=== PATIENT | male | born 1950 | race Caucasian/White ===

== ENCOUNTER 2020-07-21 10:00 | Outpatient (REF) | payer MEDICARE, SELFPAY ==
[2020-07-21 14:11] LABS: MANUAL DIFF FLAG NO
[2020-07-21 14:24] LABS: Basophils Percent Auto 0.4 % (0-2); Eosinophils Absolute Auto 0.1 X10*3/uL (0.0-0.4); Eosinophils Percent Auto 1.1 % (0-4); Hematocrit 46.6 % (42-52); Hemoglobin 15.4 g/dl (14.0-18.0); Imm Gran Abs Auto 0.05 X10*3/uL (0.00-0.03); Imm Gran Pct Auto 0.5 % (0.0-0.4); Lymphocytes Absolute Auto 2.9 X10*3/uL (1.2-4.9); Lymphocytes Percent Auto 29.6 % (20-40); Mean Corpuscular Hemoglobin 29.7 pg (27.0-33.0); Mean Corpuscular Volume 89.8 fL (80-98); Mean Platelet Volume 9.9 fL (9.4-12.4); Monocytes Absolute Auto 0.9 X10*3/uL (0.1-1.2); Monocytes Percent Auto 8.9 % (2-11); Neutrophils Absolute Auto 5.8 X10*3/uL (2.0-8.3); Neutrophils Percent Auto 59.5 % (45-73); Platelet Count 190 X10*3/uL (160-400); Red Blood Count 5.19 X10*6/uL (4.60-5.80); Red Cell Distribution Width 12.7 % (11.0-16.0); White Blood Count 9.8 X10*3/uL (4.8-10.8)
[2020-07-21 14:41] LABS: Anion Gap 10 (12-20); Blood Urea Nitrogen 20 mg/dL (9-16); Carbon Dioxide 31 mmol/L (22-29); Chloride 102 mmol/L (96-108); Estimated Glomerular Filt Rate 49; Glucose Random 82 mg/dL (60-115); Potassium 4.2 mmol/l (3.3-5.1); Sodium 139 mmol/L (135-145)
[2020-07-21 15:00] LABS: Uric Acid 8.4 mg/dL (3.4-7.0)
== END 2020-07-21 10:01 | disposition home or self-care (01) ==
LOC: HO.WFDLDS 10:00
PROVIDERS: Visit Provider Family Medicine
DX: M10.9 Gout, unspecified (principal)
CPT/HCPCS: 36415; 80048; 84550; 85025

== ENCOUNTER 2020-12-22 08:02 | Outpatient (REF) | payer MEDICARE, SELFPAY ==
[2020-12-22 09:05] LABS: MANUAL DIFF FLAG NO
[2020-12-22 09:14] LABS: Basophils Percent Auto 0.6 % (0-2); Eosinophils Absolute Auto 0.1 X10*3/uL (0.0-0.4); Eosinophils Percent Auto 1.8 % (0-4); Hematocrit 48.1 % (42-52); Hemoglobin 15.9 g/dl (14.0-18.0); Imm Gran Abs Auto 0.02 X10*3/uL (0.00-0.03); Imm Gran Pct Auto 0.3 % (0.0-0.4); Lymphocytes Percent Auto 29.2 % (20-40); Mean Corpuscular HGB Conc 33.1 g/dl (31.0-36.0); Mean Corpuscular Hemoglobin 29.6 pg (27.0-33.0); Mean Corpuscular Volume 89.4 fL (80-98); Mean Platelet Volume 9.5 fL (9.4-12.4); Monocytes Absolute Auto 0.5 X10*3/uL (0.1-1.2); Monocytes Percent Auto 7.4 % (2-11); Neutrophils Absolute Auto 4.1 X10*3/uL (2.0-8.3); Neutrophils Percent Auto 60.7 % (45-73); Platelet Count 196 X10*3/uL (160-400); Red Blood Count 5.38 X10*6/uL (4.60-5.80); Red Cell Distribution Width 12.9 % (11.0-16.0); White Blood Count 6.8 X10*3/uL (4.8-10.8)
[2020-12-22 09:34] LABS: Alanine Aminotransferase 42 U/L (0-40); Albumin Level 4.4 g/dL (3.5-5.0); Alkaline Phosphatase 93 U/L (39-117); Anion Gap 14 (12-20); Aspartate Amino Transferase 27 U/L (5-37); Blood Urea Nitrogen 21 mg/dL (9-16); Carbon Dioxide 26 mmol/L (22-29); Chloride 105 mmol/L (96-108); Cholesterol 184 mg/dL; Estimated Glomerular Filt Rate 45; Glucose Random 96 mg/dL (60-115); HDL Cholesterol 39 mg/dL; LDL Cholesterol Calculated 110 mg/dl; Potassium 4.5 mmol/L (3.3-5.1); Sodium 140 mmol/L (135-145); Total Protein 7.6 g/dL (6.5-8.0); Triglycerides 176 mg/dL; Uric Acid 8.3 mg/dL (3.4-7.0)
[2020-12-22 09:56] LABS: Free T4 (Free Thyroxine) 0.79 ng/dL (0.71-1.85); Prostate Specific Antigen Scr 0.49 ng/mL (<0.05-4.0); Thyroid Stimulating Hormone 1.84 uIU/mL (0.32-4.0)
[2020-12-22 10:02] LABS: Folate 11.5 ng/mL (> or = 4.0); Vitamin B12 562 pg/mL (200-900)
== END 2020-12-22 08:03 | disposition home or self-care (01) ==
LOC: HO.LAB 08:02
PROVIDERS: PCP Internal Medicine; Visit Provider Internal Medicine
DX: E78.5 Hyperlipidemia, unspecified (principal); E78.00 Pure hypercholesterolemia, unspecified; M10.9 Gout, unspecified; R73.02 Impaired glucose tolerance (oral); N18.32 Chronic kidney disease, stage 3b; N40.0 Benign prostatic hyperplasia without lower urinary tract symptoms; Z12.5 Encounter for screening for malignant neoplasm of prostate
CPT/HCPCS: 36415; 80053; 80061; 82607; 82746; 84153; 84439; 84443; 84550; 85025

== ENCOUNTER 2021-06-22 08:35 | Outpatient (REF) | payer MEDICARE, SELFPAY ==
[2021-06-22 08:48] LABS: MANUAL DIFF FLAG NO
[2021-06-22 09:28] LABS: Basophils Percent Auto 0.3 % (0-2); Eosinophils Absolute Auto 0.1 X10*3/uL (0.0-0.4); Eosinophils Percent Auto 1.1 % (0-4); Hematocrit 49.2 % (42-52); Hemoglobin 16.6 g/dl (14.0-18.0); Imm Gran Abs Auto 0.03 X10*3/uL (0.00-0.03); Imm Gran Pct Auto 0.3 % (0.0-0.4); Lymphocytes Absolute Auto 2.5 X10*3/uL (1.2-4.9); Lymphocytes Percent Auto 27.6 % (20-40); Mean Corpuscular HGB Conc 33.7 g/dl (31.0-36.0); Mean Corpuscular Hemoglobin 29.6 pg (27.0-33.0); Mean Corpuscular Volume 87.7 fL (80-98); Mean Platelet Volume 9.4 fL (9.4-12.4); Monocytes Absolute Auto 0.6 X10*3/uL (0.1-1.2); Monocytes Percent Auto 6.7 % (2-11); Neutrophils Absolute Auto 5.7 X10*3/uL (2.0-8.3); Platelet Count 169 X10*3/uL (160-400); Red Blood Count 5.61 X10*6/uL (4.60-5.80); Red Cell Distribution Width 12.7 % (11.0-16.0); White Blood Count 8.9 X10*3/uL (4.8-10.8)
[2021-06-22 09:44] LABS: Urine Cytology See Pathology rpt
[2021-06-22 09:46] LABS: Estimated Average Glucose 111 mg/dL; Hemoglobin A1c % 5.5 %
[2021-06-22 09:59] LABS: Alanine Aminotransferase 31 U/L (0-40); Albumin Level 4.4 g/dL (3.5-5.0); Alkaline Phosphatase 106 U/L (39-117); Anion Gap 11 (12-20); Aspartate Amino Transferase 21 U/L (5-37); Bilirubin Total 0.7 mg/dL (0.0-1.0); Blood Urea Nitrogen 20 mg/dL (9-16); Calcium 9.3 mg/dL (8.4-10.2); Carbon Dioxide 28 mmol/L (22-29); Chloride 107 mmol/L (96-108); Cholesterol 159 mg/dL; Estimated Glomerular Filt Rate 51; Glucose Fasting 97 mg/dL (60-99); HDL Cholesterol 30 mg/dL; LDL Cholesterol Calculated 77 mg/dl; Potassium 4.3 mmol/L (3.3-5.1); Sodium 142 mmol/L (135-145); Total Protein 7.7 g/dL (6.5-8.0); Triglycerides 262 mg/dL; Uric Acid 7.3 mg/dL (3.4-7.0)
[2021-06-22 10:05] LABS: Appearance Urine CLEAR; Color Urine YELLOW; Glucose Urine UA NEG (NEG); Leukocyte Esterase Urine NEG (NEG); Nitrite Urine NEG (NEG); Specific Gravity - Urine 1.025 (1.005-1.025); UACC Culture Trigger NO; Urine Blood 1+ (NEG); Urine Ketones NEG (NEG); Urine Protein NEG (NEG-TRACE)
[2021-06-22 10:14] LABS: TSH reflex Free T4 2.04 uIU/mL (0.32-4.0); Vitamin D 25-OH Total 38.3 ng/mL (>30)
[2021-06-22 10:19] LABS: RBC Urine 0-2 /HPF (0); WBC Urine 0 /HPF (0-4)
== END 2021-06-22 08:36 | disposition home or self-care (01) ==
LOC: HO.LAB 08:35
PROVIDERS: PCP Internal Medicine; Visit Provider Internal Medicine
DX: R73.01 Impaired fasting glucose (principal); N18.32 Chronic kidney disease, stage 3b; R31.1 Benign essential microscopic hematuria; E78.2 Mixed hyperlipidemia; M1A.9XX0 Chronic gout, unspecified, without tophus (tophi); E66.3 Overweight; E55.9 Vitamin D deficiency, unspecified
CPT/HCPCS: 36415; 80053; 80061; 81001; 81003; 82306; 83036; 84443; 84550; 85025; 88112

== ENCOUNTER 2021-12-18 08:04 | Outpatient (REF) | payer MEDICARE, SELFPAY ==
[2021-12-18 08:41] LABS: Appearance Urine CLEAR; Color Urine YELLOW; Glucose Urine UA NEG (NEG); Leukocyte Esterase Urine NEG (NEG); Nitrite Urine NEG (NEG); PH 5.5 (5.0-8.0); Specific Gravity - Urine >= 1.030 (1.005-1.025); UACC Culture Trigger NO; Urine Blood 2+ (NEG); Urine Ketones NEG (NEG); Urine Protein NEG (NEG-TRACE)
[2021-12-18 08:53] LABS: Bacteria Urine TRACE /LPF; Mucus Urine 2+ /LPF; WBC Urine 0 /HPF (0-4)
== END 2021-12-18 08:05 | disposition home or self-care (01) ==
LOC: HO.LAB 08:04
PROVIDERS: PCP Internal Medicine; Visit Provider Internal Medicine
DX: R31.1 Benign essential microscopic hematuria (principal); N18.32 Chronic kidney disease, stage 3b
CPT/HCPCS: 81001

== ENCOUNTER 2021-12-22 09:30 | Outpatient (REF) | payer MEDICARE, SELFPAY ==
[2021-12-22 11:14] LABS: Alanine Aminotransferase 40 U/L (0-40); Albumin Level 4.4 g/dL (3.5-5.0); Alkaline Phosphatase 92 U/L (39-117); Anion Gap 14 (12-20); Aspartate Amino Transferase 26 U/L (5-37); Bilirubin Total 1.1 mg/dL (0.0-1.0); Blood Urea Nitrogen 28 mg/dL (9-16); Calcium 9.8 mg/dL (8.4-10.2); Carbon Dioxide 27 mmol/L (22-29); Chloride 105 mmol/L (96-108); Cholesterol 192 mg/dL; Estimated Glomerular Filt Rate 49; Glucose Fasting 89 mg/dL (60-99); HDL Cholesterol 35 mg/dL; LDL Cholesterol Calculated 128 mg/dl; Potassium 4.8 mmol/L (3.3-5.1); Sodium 141 mmol/L (135-145); Triglycerides 148 mg/dL; Uric Acid 8.7 mg/dL (3.4-7.0)
== END 2021-12-22 09:31 | disposition home or self-care (01) ==
LOC: HO.LAB 09:30
PROVIDERS: PCP Internal Medicine; Visit Provider Internal Medicine
DX: M10.9 Gout, unspecified (principal); E78.00 Pure hypercholesterolemia, unspecified
CPT/HCPCS: 36415; 80053; 80061; 84550

== ENCOUNTER 2022-06-15 07:04 | Outpatient (REF) | payer MEDICARE, SELFPAY ==
[2022-06-15 07:28] LABS: MANUAL DIFF FLAG NO
[2022-06-15 08:01] LABS: Urine Cytology See Pathology rpt
[2022-06-15 08:06] LABS: Basophils Absolute Auto 0.1 X10*3/uL (0.0-0.2); Basophils Percent Auto 0.7 % (0-2); Eosinophils Absolute Auto 0.2 X10*3/uL (0.0-0.4); Eosinophils Percent Auto 2.3 % (0-4); Hematocrit 49.1 % (42.0-52.0); Hemoglobin 16.4 g/dl (14.0-18.0); Imm Gran Abs Auto 0.02 X10*3/uL (0.00-0.03); Imm Gran Pct Auto 0.3 % (0.0-0.4); Lymphocytes Absolute Auto 2.5 X10*3/uL (1.2-4.9); Lymphocytes Percent Auto 34.1 % (20-40); Mean Corpuscular HGB Conc 33.4 g/dl (31.0-36.0); Mean Corpuscular Hemoglobin 29.5 pg (27.0-33.0); Mean Corpuscular Volume 88.5 fL (80.0-98.0); Mean Platelet Volume 9.7 fL (9.4-12.4); Monocytes Absolute Auto 0.6 X10*3/uL (0.1-1.2); Monocytes Percent Auto 7.4 % (2-11); Neutrophils Absolute Auto 4.1 x10*3/uL (2.0-8.3); Neutrophils Percent Auto 55.2 % (45-73); Platelet Count 169 X10*3/uL (160-400); Red Blood Count 5.55 X10*6/uL (4.60-5.80); Red Cell Distribution Width 13.2 % (11.0-16.0); White Blood Count 7.4 X10*3/uL (4.8-10.8)
[2022-06-15 08:37] LABS: Appearance Urine Clear; Color Urine Yellow; Glucose Urine UA Negative (Negative); Leukocyte Esterase Urine Negative (Negative); Nitrite Urine Negative (Negative); PH 5.5 (5.0-9.0); UMIC TRIGGER UACC YES; Urine Blood Small (1+) (Negative); Urine Ketones Negative (Negative); Urine Protein Negative (Neg-Trace)
[2022-06-15 08:48] LABS: Alanine Aminotransferase 32 U/L (0-40); Albumin Level 4.4 g/dL (3.5-5.0); Alkaline Phosphatase 99 U/L (39-117); Anion Gap 17 (12-20); Aspartate Amino Transferase 24 U/L (5-37); Bilirubin Total 0.6 mg/dL (0.0-1.0); Blood Urea Nitrogen 27 mg/dL (9-16); Calcium 9.2 mg/dL (8.4-10.2); Carbon Dioxide 23 mmol/L (22-29); Chloride 105 mmol/L (96-108); Cholesterol 183 mg/dL; Estimated Glomerular Filt Rate 41; Glucose Fasting 100 mg/dL (60-99); HDL Cholesterol 36 mg/dL; LDL Cholesterol Calculated 110 mg/dl; Potassium 4.7 mmol/L (3.3-5.1); Sodium 140 mmol/L (135-145); Total Protein 7.8 g/dL (6.5-8.0); Triglycerides 186 mg/dL
[2022-06-15 08:49] LABS: TSH reflex Free T4 2.25 uIU/mL (0.32-4.0); Vitamin D 25-OH Total 39.1 ng/mL (>30)
[2022-06-15 08:49] LABS: Bacteria Urine None Seen (None Seen); Hyaline Casts Urine 0-2 /LPF (0-2); RBC Urine 0-2 /HPF (0-2); Squamous Epithelial Cell Urine 0-2 /HPF (0-2); WBC Urine 0-5 /HPF (0-5)
== END 2022-06-15 07:05 | disposition home or self-care (01) ==
LOC: HO.LAB 07:04
PROVIDERS: PCP Internal Medicine; Visit Provider Internal Medicine
DX: R31.1 Benign essential microscopic hematuria (principal); E78.00 Pure hypercholesterolemia, unspecified; I10 Essential (primary) hypertension; E55.9 Vitamin D deficiency, unspecified; M10.9 Gout, unspecified
CPT/HCPCS: 36415; 80053; 80061; 81001; 82306; 84443; 84550; 85025; 88112

== ENCOUNTER 2022-06-30 10:20 | Outpatient (REF) | payer MEDICARE, SELFPAY ==
--- NOTE | ~2022-06-30 | US_ITS ---
EXAMINATION: US RETROPERITONEAL LIMITED (RENAL ONLY) CLINICAL INFORMATION: Cyst of kidney, acquired. COMPARISON: Renal ultrasound 02/02/2018 and 04/30/2015. TECHNIQUE: Real-time imaging of the kidneys. FINDINGS: RIGHT KIDNEY: 12.6 x 5.6 x 6.2 cm (SAG x AP x TRV). The kidney is normal in size, contour, and echogenicity. Renal cortical thickness is normal. There are multiple cysts. Largest measures 7.4 x 6.8 x 6.8 cm in the upper pole. This is increased in size from 5.3 x 5.9 cm on previous exam. No renal calculi or hydronephrosis. LEFT KIDNEY: 13.0 x 6.6 x 4.9 cm (SAG x AP x TRV). The kidney is normal in size, contour, and echogenicity. Renal cortical thickness is normal. There are multiple cysts. Largest measures 5.2 x 4.5 x 5 cm in the upper pole. This is minimally complex with single thin septation. This is increased from 4 x 3.5 cm previous exam. No renal calculi or hydronephrosis. US/US renal BI IMPRESSION: Multiple bilateral renal cysts.
== END 2022-06-30 10:21 | disposition home or self-care (01) ==
LOC: HO.US 10:20
PROVIDERS: Visit Provider Internal Medicine
DX: N18.32 Chronic kidney disease, stage 3b (principal); N28.1 Cyst of kidney, acquired; R31.1 Benign essential microscopic hematuria
CPT/HCPCS: 76775

== ENCOUNTER 2022-12-31 07:46 | Outpatient (REF) | payer MEDICARE, SELFPAY ==
[2022-12-31 08:03] LABS: MANUAL DIFF FLAG NO
[2022-12-31 08:27] LABS: Basophils Absolute Auto 0.1 X10*3/uL (0.0-0.2); Basophils Percent Auto 0.7 % (0-2); Eosinophils Absolute Auto 0.1 X10*3/uL (0.0-0.4); Hematocrit 49.4 % (42.0-52.0); Hemoglobin 16.5 g/dl (14.0-18.0); Imm Gran Abs Auto 0.02 X10*3/uL (0.00-0.03); Imm Gran Pct Auto 0.3 % (0.0-0.4); Lymphocytes Absolute Auto 2.4 X10*3/uL (1.2-4.9); Lymphocytes Percent Auto 35.1 % (20-40); Mean Corpuscular HGB Conc 33.4 g/dl (31.0-36.0); Mean Corpuscular Hemoglobin 29.9 pg (27.0-33.0); Mean Corpuscular Volume 89.5 fL (80.0-98.0); Mean Platelet Volume 9.4 fL (9.4-12.4); Monocytes Absolute Auto 0.5 X10*3/uL (0.1-1.2); Monocytes Percent Auto 7.9 % (2-11); Neutrophils Absolute Auto 3.7 x10*3/uL (2.0-8.3); Platelet Count 177 X10*3/uL (160-400); Red Blood Count 5.52 X10*6/uL (4.60-5.80); Red Cell Distribution Width 12.8 % (11.0-16.0); White Blood Count 6.7 X10*3/uL (4.8-10.8)
[2022-12-31 08:31] LABS: Appearance Urine Clear; Color Urine Yellow; Glucose Urine UA Negative (Negative); Leukocyte Esterase Urine Negative (Negative); Nitrite Urine Negative (Negative); Specific Gravity - Urine 1.025 (1.005-1.025); UMIC TRIGGER UACC YES; Urine Blood Moderate (2+) (Negative); Urine Ketones Negative (Negative); Urine Protein Negative (Neg-Trace)
[2022-12-31 08:36] LABS: Bacteria Urine None Seen (None Seen); Hyaline Casts Urine 0-2 /LPF (0-2); Squamous Epithelial Cell Urine 0-2 /HPF (0-2); WBC Urine 0-5 /HPF (0-5)
[2022-12-31 08:45] LABS: Estimated Average Glucose 108 mg/dL; Hemoglobin A1C 152.5356 umol/L; Hemoglobin A1c % 5.4 %
[2022-12-31 09:08] LABS: Alanine Aminotransferase 29 U/L (0-40); Albumin Level 4.4 g/dL (3.5-5.0); Alkaline Phosphatase 95 U/L (39-117); Anion Gap 15 (12-20); Aspartate Amino Transferase 24 U/L (5-37); Bilirubin Total 0.8 mg/dL (0.0-1.0); Blood Urea Nitrogen 23 mg/dL (9-16); Calcium 9.4 mg/dL (8.4-10.2); Carbon Dioxide 26 mmol/L (22-29); Chloride 105 mmol/L (96-108); Cholesterol 165 mg/dL; Estimated Glomerular Filt Rate 45; Glucose Fasting 95 mg/dL (60-99); HDL Cholesterol 35 mg/dL; LDL Cholesterol Calculated 91 mg/dl; Potassium 4.3 mmol/L (3.3-5.1); Sodium 142 mmol/L (135-145); Total Protein 7.4 g/dL (6.5-8.0); Triglycerides 197 mg/dL; Uric Acid 7.6 mg/dL (3.4-7.0)
[2022-12-31 09:24] LABS: TSH reflex Free T4 3.04 uIU/mL (0.32-4.0)
== END 2022-12-31 07:47 | disposition home or self-care (01) ==
LOC: HO.LAB 07:46
PROVIDERS: PCP Internal Medicine; Visit Provider Internal Medicine
DX: M10.9 Gout, unspecified (principal); I10 Essential (primary) hypertension; R73.01 Impaired fasting glucose; E55.9 Vitamin D deficiency, unspecified; E78.00 Pure hypercholesterolemia, unspecified
CPT/HCPCS: 36415; 80053; 80061; 81001; 82306; 83036; 84443; 84550; 85025

== ENCOUNTER 2023-07-04 07:21 | Outpatient (REF) | payer MEDICARE, OTHER, SELFPAY ==
[2023-07-04 07:42] LABS: MANUAL DIFF FLAG NO
[2023-07-04 07:47] LABS: Basophils Percent Auto 0.4 % (0-2); Eosinophils Absolute Auto 0.1 X10*3/uL (0.0-0.4); Hematocrit 49.4 % (42.0-52.0); Hemoglobin 16.9 g/dl (14.0-18.0); Imm Gran Abs Auto 0.06 X10*3/uL (0.00-0.03); Imm Gran Pct Auto 0.6 % (0.0-0.4); Lymphocytes Absolute Auto 2.7 X10*3/uL (1.2-4.9); Mean Corpuscular HGB Conc 34.2 g/dl (31.0-36.0); Mean Corpuscular Volume 87.6 fL (80.0-98.0); Mean Platelet Volume 9.4 fL (9.4-12.4); Monocytes Absolute Auto 0.6 X10*3/uL (0.1-1.2); Monocytes Percent Auto 6.2 % (2-11); Neutrophils Absolute Auto 6.8 x10*3/uL (2.0-8.3); Neutrophils Percent Auto 65.8 % (45-73); Platelet Count 156 X10*3/uL (160-400); Red Blood Count 5.64 X10*6/uL (4.60-5.80); Red Cell Distribution Width 12.6 % (11.0-16.0); White Blood Count 10.4 X10*3/uL (4.8-10.8)
[2023-07-04 08:37] LABS: Alanine Aminotransferase 29 U/L (0-40); Albumin Level 4.2 g/dL (3.5-5.0); Alkaline Phosphatase 104 U/L (39-117); Anion Gap 16 (12-20); Aspartate Amino Transferase 19 U/L (5-37); Bilirubin Total 0.5 mg/dL (0.0-1.0); Blood Urea Nitrogen 21 mg/dL (9-16); Calcium 9.2 mg/dL (8.4-10.2); Carbon Dioxide 22 mmol/L (22-29); Chloride 107 mmol/L (96-108); Cholesterol 159 mg/dL (<200); Estimated Glomerular Filt Rate 56; Glucose Fasting 103 mg/dL (60-99); HDL Cholesterol 34 mg/dL (>40); LDL Cholesterol Calculated 85 mg/dL (<100); Potassium 4.1 mmol/L (3.3-5.1); Sodium 141 mmol/L (135-145); Total Protein 7.8 g/dL (6.5-8.0); Triglycerides 201 mg/dL (<150); Uric Acid 7.9 mg/dL (3.4-7.0)
[2023-07-04 08:46] LABS: Appearance Urine Clear; Color Urine Yellow; Glucose Urine UA Negative (Negative); Leukocyte Esterase Urine Negative (Negative); Nitrite Urine Negative (Negative); UMIC TRIGGER UACC YES; Urine Blood Small (1+) (Negative); Urine Ketones Negative (Negative); Urine Protein Negative (Neg-Trace)
[2023-07-04 08:53] LABS: TSH reflex Free T4 2.11 uIU/mL (0.32-4.0); Vitamin D 25-OH Total 48.1 ng/mL (>30)
[2023-07-04 09:01] LABS: Bacteria Urine None Seen (None Seen); Creatinine Urine 138.69 mg/dL; Hyaline Casts Urine 0-2 /LPF (0-2); Squamous Epithelial Cell Urine 0-2 /HPF (0-2); WBC Urine 0-5 /HPF (0-5)
== END 2023-07-04 07:22 | disposition home or self-care (01) ==
LOC: HO.LAB 07:21
PROVIDERS: PCP Internal Medicine; Visit Provider Internal Medicine
DX: I12.9 Hypertensive chronic kidney disease with stage 1 through stage 4 chronic kidney disease, or unspecified chronic kidney disease (principal); N18.30 Chronic kidney disease, stage 3 unspecified; E78.00 Pure hypercholesterolemia, unspecified; M10.9 Gout, unspecified; E55.9 Vitamin D deficiency, unspecified
CPT/HCPCS: 36415; 80053; 80061; 81001; 82043; 82306; 82570; 84443; 84550; 85025

== ENCOUNTER 2023-07-05 09:29 | Outpatient (AMB) | payer MEDICARE, OTHER, SELFPAY ==
[2023-07-05 09:33] VITALS: BP 122/90; PULSE 89; O2SAT 96; BMI 29.6
--- NOTE | 2023-07-05 09:33 | A.OFFPC_ITS ---
Vital Signs 07/05/23 09:33 Height 5 ft 7 in Weight 189 lb BMI 29.6 BP 122/90 H Blood Pressure Location Lt brachial Position Sitting Pulse 89 Pulse Source Pulse Oximeter Pulse Oximetry (%) 96 Oxygen Delivery Method Room Air Intake Visit Reasons: hyperlipidemia, CKD, renal cysts It Operations Manager Required: No Accompanied by: Self / Same As Patient Allergies Bee sting Allergy (Unknown, Uncoded 07/05/23 09:43) anaphylaxis bee stings Allergy (Unknown, Uncoded 07/05/23 09:43) Anaphylaxis Penicillin Allergy (Unknown, Uncoded 07/05/23 09:43) rash penicillin Allergy (Unknown, Uncoded 07/05/23 09:43) Rash Medication List - Last Reconciled 07/05/23 by Hernandez Martinez MD atorvastatin 10 mg PO DAILY colchicine (gout) (Colcrys) 0.6 mg PO DAILY 30 days epinephrine (EpiPen) 0.3 mg (0.3 mL) IM Q10M PRN methocarbamol 750 mg PO Q8H PRN mometasone 0.1% 1 appl topical DAILY PRN omega-3 fatty acids (Fish Oil Concentrate) 1,000 mg PO DAILY Tobacco use date assessed: 07/05/23 Fall risk assessment: No Falls in past year Last assessed Fall Risk: 07/05/23 Dental Screening Dental Screen Date: 07/05/23 Did you have a dental visit in the last 12 months?: Yes Did you have a dental problem in the last 6 months where you did not have access to dental care?: No Was dental information given to patient?: Patient has dentist HPI hyperlipidemia, CKD, renal cysts HPI Details Patient comes in today for his follow up visit States that he feels okay He denies any headaches or dizziness Denies any chest pains, no SOB No nausea/vomiting, no abdominal pain No change in bowel habits noted Adds that he recently noticed a couple of small skin lesions/skin tags over the front of his lower throat area - states that the lesions do not hurt or itch but is wondering what they are and whether he needs to have them removed or not Had his follow up labs done yesterday - to discuss his results [facility] Medical History (Updated 07/05/23 @ 10:02 by Hernandez Martinez MD) Renal cysts, acquired, bilateral Benign microscopic hematuria Elevated blood pressure reading Impaired fasting glucose Primary osteoarthritis of both knees Mixed hyperlipidemia Normal colonoscopy CKD (chronic kidney disease) stage 3, GFR 30-59 ml/min BPH (benign prostatic hyperplasia) Overweight (BMI 25.0-29.9) Surgical History History of prostate surgery (~08/2018) Family History Father Parkinson's disease Mother Alzheimer's disease Social History Housing: House Alcohol intake: current Alcohol intake frequency: holidays/special occasions only Alcohol type: beer Patient Tobacco Use Status: Former Tobacco user e-Cigarette/Vaping Use: Never Used Second Hand Smoke Exposure: Yes service: No Current occupational status: retired Cognitive needs: No Hearing needs: Yes Vision needs: Yes Questionnaire PHQ-9 Over the last 2 weeks, how often have you been bothered by any of the following problems? 1. Little interest or pleasure in doing things: not at all 2. Feeling down, depressed, or hopeless: not at all 3. Trouble falling or staying asleep, or sleeping too much: not at all 4. Feeling tired or having little energy: not at all 5. Poor appetite or overeating: not at all 6. Feeling bad about yourself - or that you are a failure or have let yourself or your family down: not at all 7. Trouble concentrating on things, such as reading the newspaper or watching television: not at all 8. Moving or speaking so slowly that other people could have noticed. Or the opposite - being so fidgety or restless that you have been moving around a lot more than usual: not at all 9. Thoughts that you would be better off or of hurting yourself in some way: not at all Total score: 0 Depression Screening Interpretation: Negative Depression Screening Done: Yes [id number] - PHQ-9 Billing: Yes Source: Developed by Drs. Michael Page, Cherie Watson, Nick Ha and colleagues, with an educational jules from [email or web address]. Thrive Questionnaire Date Thrive assessed: 07/05/23 I am a: Patient What is your living situation today?: I have a steady place to live Within the past 12 months, did the food you bought not last and you didn't have the money to get more?: Never true Within the past 12 months, did you worry whether your food would run out before you got money to buy more?: Never true Do you have trouble paying for medicines?: No Do you have trouble getting transportation to medical appointments?: No Do you have trouble paying your heating and electricity bill?: No Do you have trouble taking care of your child, family member or friend?: No Do you have trouble with day-to-day activities such as bathing, preparing meals, shopping, managing finances, etc.?: No Are you currently unemployed and looking for a job?: No Are you interested in more education?: No Please select the resources that you would like help with: None Currently or been in a relationship where the following occur: no concerns reported AUDIT C Alcohol Use Questionnaire (AUDIT-C) 1. How often do you have a drink containing alcohol?: Monthly or less 2. How many drinks containing alcohol do you have on a typical day when you are drinking?: 1 or 2 3. How often do you have six or more drinks on one occasion?: Never Total Score: 1 Score Reviewed/Action Taken: Yes RACHEAL-7 AMB Questionnaire RACHEAL-7 Date RACHEAL - 7 assessed: 07/05/23 Feeling nervous, anxious, or on edge: 0 = Not at all Not being able to stop or control worryin = Not at all Worrying too much about different things: 0 = Not at all Trouble relaxin = Not at all Being so restless that it is hard to sit still: 0 = Not at all Becoming easily annoyed or irritable: 0 = Not at all Feeling afraid as if something awful might happen: 0 = Not at all Total RACHEAL-7 score (0-4 normal; 5-9 mild; 10-14 moderate; 15-21 severe): 0 Source: Developed by Drs. Michael Page, Cheire Watson, Nick Ha and colleagues, with an educational jules from [email or web address]. Review of Systems Const Denies chills, Denies fatigue, Denies fever(s) and Denies headache(s) ENT Denies dysphagia, Denies dizziness, Denies otalgia, Denies headache(s), Denies neck pain, Denies odynophagia and Denies sore throat Card Denies chest pain, Denies palpitations and Denies dyspnea Resp Denies cough and Denies dyspnea GI Denies abdominal pain, Denies constipation, Denies dysphagia, Denies heartburn, Denies diarrhea, Denies nausea, Denies odynophagia and Denies vomiting Denies dysuria, Denies nocturia and Denies urinary frequency Musc Reports back pain (on and off) and Denies neck pain Skin/Breast Details: (+) couple of small, raised skin lesions over the lower throat area anteriorly Denies rash Neuro Denies dizziness and Denies headache(s) Endo Denies fatigue and Denies palpitations Physical exam (Primary Care) Vital Signs: Last Vital Signs Pulse 89 07/05/23 09:33 BP 122/90 H 07/05/23 09:33 Pulse Ox 96 07/05/23 09:33 Oxygen Delivery Method Room Air 07/05/23 09:33 BMI result Body Mass Index 29.6 Tobacco/Smoking Status: Tobacco use Status Tobacco use date assessed 07/05/23 07/05/23 09:38 Patient Tobacco Use Status Former Tobacco user 07/05/23 09:38 e-Cigarette/Vaping Use Never Used 07/05/23 09:38 PHQ-9: PHQ-9 Score PHQ-9: Total score 0 07/05/23 09:38 Depression Screening Interpretation: Negative Thrive Assessment: Date of Thrive Assessment Date Thrive assessed 07/05/23 07/05/23 09:38 Currently or been in a relationship where the following occur: no concerns reported Const General: no acute distress and alert HENMT Ears: TM's normal bilaterally and EAC's normal Throat: Yes posterior oropharynx normal and Yes tonsils normal (no TP congestion) Neck Neck: Yes no lymphadenopathy and Yes supple Resp Auscultation: clear to auscultation bilaterally, no rales and no wheezes Cardio Rate: regular rate Rhythm: regular rhythm Heart sounds: no murmurs GI Palpation (GI): Soft to palpation and nontender Auscultation: normal bowel sounds Back/Spine/Pelvis Thoracic/Lumbar Spine: No lumbar spinal tenderness Skin Other: (+) couple of small, raised, pearly lesions over the lower anterior throat area just above the sternoclavicular notch Extrem General: Yes no clubbing, cyanosis or edema Results Reviewed Results Reviewed: Laboratory Tests 07/04/23 07/04/23 07/04/23 07:30 07:30 07:41 WBC 10.4 Hgb 16.9 Hct 49.4 Plt Count 156 L Sodium 141 Potassium 4.1 Creatinine 1.26 Estimated GFR 56 Fasting Glucose 103 H Uric Acid 7.9 H Calcium 9.2 AST 19 ALT 29 Triglycerides 201 H Cholesterol 159 LDL Cholesterol, Calc HDL Cholesterol 25-OH Vitamin D Total 48.1 TSH 2.11 Ur Specific [place] 1.020 Urine Protein Negative Urine Glucose (UA) Negative Urine Blood Small (1+) H Microalb/Creat Ratio 5.0 07/04/23 07/04/23 07:41 07:41 WBC Hgb Hct Plt Count Sodium Potassium Creatinine Estimated GFR Fasting Glucose Uric Acid Calcium AST ALT Triglycerides Cholesterol LDL Cholesterol, Calc 85 HDL Cholesterol 34 L 25-OH Vitamin D Total TSH Ur Specific [place] Urine Protein Urine Glucose (UA) Urine Blood Microalb/Creat Ratio Assessment and Plan Assessment & Plan (1) Mixed hyperlipidemia: Code(s): E78.2 - Mixed hyperlipidemia Plan: Results of his labs done yesterday reviewed and discussed with patient - lipids are mostly unchanged although his serum TG level has increased slightly, likely due to his recent weight gain Reinforced low cholesterol diet Continue Atorvastatin 10 mg QD and Fish Oil capsules 1000 mg QD Will recheck his labs and fasting lipids in 6 months for follow up (2) Elevated blood pressure reading: Code(s): R03.0 - Elevated blood-pressure reading, without diagnosis of hypertension Plan: Reinforced low sodium diet - goal is systolic BP of at least 130 to 140 mm or less Patient is reminded to monitor his blood pressure regularly (3) CKD (chronic kidney disease) stage 3, GFR 30-59 ml/min: Code(s): N18.30 - Chronic kidney disease, stage 3 unspecified Qualifiers: Chronic kidney disease stage 3 subtype: stage 3b (GFR 30-44) Qualified Code(s): N18.32 - Chronic kidney disease, stage 3b Plan: Patient is advised that his serum creatinine and GFR appears to have improved significantly on his recent labs - whether this is accurate or not remains to be seen and will depend on what his subsequent numbers look like Will continue to monitor his GFR and serum creatinine regularly Patient is again encouraged to stay hydrated, exercise regularly, try to keep his blood pressure under control as best as he can and avoid taking any NSAIDs (4) Renal cysts, acquired, bilateral: Code(s): N28.1 - Cyst of kidney, acquired Plan: Renal US done in 06/2022 revealed (+) multiple bilateral renal cysts, with some of the larger cysts demonstrating thin internal septations. There were no suspicious mural nodules and no stones or obstructive uropathy noted but the cy sts in both kidneys have increased in size when compared to his US done in 2018 Will continue monitoring this but more closely - will consider repeating a renal US when he returns for his follow up appt next year (5) Impaired fasting glucose: Code(s): R73.01 - Impaired fasting glucose Plan: FBS was again slightly elevated at 103 mg/dl on his recent labs; his HgbA1c was normal at 5.5% when checked previously Reinforced low calorie diet/exercise as tolerated (6) Gout: Code(s): M10.9 - Gout, unspecified Qualifiers: Gout site: unspecified site Gout etiology: unspecified cause Chronicity: chronic Presence of tophus: without tophus Qualified Code(s): [id number] - Chronic gout, unspecified, without tophus (tophi) Plan: Serum uric acid level has increased again slightly from previous (7.9) on his recent labs States that he's had no acute gout flare ups recently Reinforced low purine diet (7) BPH (benign prostatic hyperplasia): Code(s): N40.0 - Benign prostatic hyperplasia without lower urinary tract symptoms Qualifiers: Lower urinary tract symptom presence: symptoms absent Qualified Code(s): N40.0 - Benign prostatic hyperplasia without lower urinary tract symptoms Plan: S/P TURP a few years ago Is currently asymptomatic Follow up with urology as scheduled (8) Primary osteoarthritis of both knees: Comment: X-rays of both knees done in December 2016 showed (+) mild tricompartmental arthritis Code(s): M17.0 - Bilateral primary osteoarthritis of knee Plan: States that his knees have not bothered him much lately - symptoms have improved significantly with cortisone injections into the left knee in the past, most recently in April 2018 Follow up with orthopedics as scheduled (9) Benign microscopic hematuria: Code(s): R31.1 - Benign essential microscopic hematuria Plan: Asymptomatic - work ups done in the past have been negative; these appear to be more likely related to his renal cysts Will continue to monitor this regularly (10) Overweight (BMI 25.0-29.9): Code(s): E66.3 - Overweight Plan: Reinforced diet/exercise as tolerated/lose weight Plan Follow up in 6 months Orders: Orders Complete Blood Count Auto Diff 6 Months I10 - Essential (primary) hypertension Comprehensive [place]. Panel Fast 6 Months E78.00 - Pure hypercholesterolemia, unspecified Lipid Panel 6 Months E78.00 - Pure hypercholesterolemia, unspecified Uric Acid 6 Months M10.9 - Gout, unspecified TSH reflex Free T4 6 Months E78.00 - Pure hypercholesterolemia, unspecified Vitamin D 25-OH Total 6 Months E55.9 - Vitamin D deficiency, unspecified UA CC w/rflx Micro + Cult 6 Months R30.0 - Dysuria Urine Cytology 6 Months R31.1 - Benign essential microscopic hematuria Coding Level of Care Code Est Pt Level 4 (92453) Diagnoses Mixed hyperlipidemia E78.2 Elevated blood pressure reading R03.0 Stage 3b chronic kidney disease N18.32 Chronic kidney disease stage 3 subtype: stage 3b (GFR 30-44) Renal cysts, acquired, bilateral N28.1 Impaired fasting glucose R73.01 Chronic gout without tophus, unspecified cause, unspecified site [id number] Gout site: unspecified site Gout etiology: unspecified cause Chronicity: chronic Presence of tophus: without tophus Benign prostatic hyperplasia without lower urinary tract symptoms N40.0 Lower urinary tract symptom presence: symptoms absent Primary osteoarthritis of both knees M17.0 Benign microscopic hematuria R31.1 Overweight (BMI 25.0-29.9) E66.3
== END 2023-07-05 10:00 | disposition home or self-care (01) ==
PROVIDERS: Visit Provider Internal Medicine
DX: E78.2 Mixed hyperlipidemia (principal); R03.0 Elevated blood-pressure reading, without diagnosis of hypertension; N18.32 Chronic kidney disease, stage 3b; N28.1 Cyst of kidney, acquired; R73.01 Impaired fasting glucose; M1A.9XX0 Chronic gout, unspecified, without tophus (tophi); N40.0 Benign prostatic hyperplasia without lower urinary tract symptoms; M17.0 Bilateral primary osteoarthritis of knee; R31.1 Benign essential microscopic hematuria; E66.3 Overweight
CPT/HCPCS: 99214

== ENCOUNTER 2024-01-03 07:13 | Outpatient (REF) | payer MEDICARE, OTHER, SELFPAY ==
[2024-01-03 07:35] LABS: MANUAL DIFF FLAG NO
[2024-01-03 07:54] LABS: Basophils Percent Auto 0.5 % (0-2); Eosinophils Absolute Auto 0.1 X10*3/uL (0.0-0.4); Eosinophils Percent Auto 0.8 % (0-4); Hematocrit 50.3 % (42.0-52.0); Hemoglobin 16.2 g/dl (14.0-18.0); Imm Gran Abs Auto 0.02 X10*3/uL (0.00-0.03); Imm Gran Pct Auto 0.3 % (0.0-0.4); Lymphocytes Absolute Auto 2.1 X10*3/uL (1.2-4.9); Lymphocytes Percent Auto 33.5 % (20-40); Mean Corpuscular HGB Conc 32.2 g/dl (31.0-36.0); Mean Corpuscular Hemoglobin 28.9 pg (27.0-33.0); Mean Corpuscular Volume 89.8 fL (80.0-98.0); Mean Platelet Volume 9.3 fL (9.4-12.4); Monocytes Absolute Auto 0.5 X10*3/uL (0.1-1.2); Monocytes Percent Auto 7.9 % (2-11); Neutrophils Absolute Auto 3.5 x10*3/uL (2.0-8.3); Platelet Count 181 X10*3/uL (160-400); Red Cell Distribution Width 13.2 % (11.0-16.0); White Blood Count 6.2 X10*3/uL (4.8-10.8)
[2024-01-03 08:06] LABS: Urine Cytology See Pathology rpt
[2024-01-03 08:21] LABS: Appearance Urine Clear; Color Urine Yellow; Glucose Urine UA Negative (Negative); Leukocyte Esterase Urine Negative (Negative); Nitrite Urine Negative (Negative); PH 5.5 (5.0-9.0); UMIC TRIGGER UACC YES; Urine Blood Small (1+) (Negative); Urine Ketones Negative (Negative); Urine Protein Negative (Neg-Trace)
[2024-01-03 08:24] LABS: Alanine Aminotransferase 23 U/L (0-40); Albumin Level 4.3 g/dL (3.5-5.0); Alkaline Phosphatase 86 U/L (39-117); Anion Gap 11 (12-20); Aspartate Amino Transferase 20 U/L (5-37); Bilirubin Total 0.8 mg/dL (0.0-1.0); Blood Urea Nitrogen 26 mg/dL (9-16); Calcium 9.6 mg/dL (8.4-10.2); Carbon Dioxide 29 mmol/L (22-29); Chloride 105 mmol/L (96-108); Cholesterol 154 mg/dL (<200); Estimated Glomerular Filt Rate 52; Glucose Fasting 98 mg/dL (60-99); HDL Cholesterol 39 mg/dL (>40); LDL Cholesterol Calculated 92 mg/dL (<100); Potassium 4.3 mmol/L (3.3-5.1); Sodium 141 mmol/L (135-145); Total Protein 8.2 g/dL (6.5-8.0); Triglycerides 117 mg/dL (<150); Uric Acid 7.6 mg/dL (3.4-7.0)
[2024-01-03 08:31] LABS: Bacteria Urine None Seen (None Seen); Hyaline Casts Urine 0-2 /LPF (0-2); Squamous Epithelial Cell Urine 0-2 /HPF (0-2); WBC Urine 0-5 /HPF (0-5)
[2024-01-03 08:42] LABS: TSH reflex Free T4 2.11 uIU/mL (0.32-4.0); Vitamin D 25-OH Total 37.9 ng/mL (>30)
== END 2024-01-03 07:14 | disposition home or self-care (01) ==
LOC: HO.LAB 07:13
PROVIDERS: PCP Internal Medicine; Visit Provider Internal Medicine
DX: N18.30 Chronic kidney disease, stage 3 unspecified (principal); R30.0 Dysuria; I10 Essential (primary) hypertension; M10.9 Gout, unspecified; E78.00 Pure hypercholesterolemia, unspecified; R31.1 Benign essential microscopic hematuria; E55.9 Vitamin D deficiency, unspecified
CPT/HCPCS: 36415; 80053; 80061; 81001; 82306; 84443; 84550; 85025; 88112

== ENCOUNTER 2024-01-04 09:41 | Outpatient (AMB) | payer MEDICARE, OTHER, SELFPAY ==
[2024-01-04 09:44] VITALS: BP 112/78; PULSE 78; O2SAT 95; BMI 26.4
--- NOTE | 2024-01-04 09:44 | MHC.PC.OV ---
Vital Signs 01/04/24 09:44 Height 5 ft 7 in Weight 168 lb 8 oz BMI 26.4 BP 112/78 Blood Pressure Location Lt brachial Position Sitting Pulse 78 Pulse Source Pulse Oximeter Pulse Oximetry (%) 95 Oxygen Delivery Method Room Air Intake Visit Reasons: HTN, CKD, hyperuricemia, hyperlipidemia Building [employer] Required: No Accompanied by: Self / Same As Patient Allergies Bee sting Allergy (Unknown, Uncoded 01/04/24 10:19) anaphylaxis bee stings Allergy (Unknown, Uncoded 01/04/24 10:19) Anaphylaxis Penicillin Allergy (Unknown, Uncoded 01/04/24 10:19) rash penicillin Allergy (Unknown, Uncoded 01/04/24 10:19) Rash Medication List - Last Reconciled 01/04/24 by Hernandez Martinez MD atorvastatin 10 mg PO DAILY colchicine (Colcrys) 0.6 mg PO DAILY 30 days epinephrine (EpiPen) 0.3 mg (0.3 mL) IM Q10M PRN methocarbamol 750 mg PO Q8H PRN mometasone 0.1% 1 appl topical DAILY PRN omega-3 fatty acids (Fish Oil Concentrate) 1,000 mg PO DAILY Tobacco use date assessed: 01/04/24 Fall risk assessment: No Falls in past year Last assessed Fall Risk: 01/04/24 Dental Screening Dental Screen Date: 01/04/24 Did you have a dental visit in the last 12 months?: Yes Did you have a dental problem in the last 6 months where you did not have access to dental care?: No Was dental information given to patient?: Patient has dentist HPI HTN, CKD, hyperuricemia, hyperlipidemia HPI Details Patient comes in today for his follow up visit States that he feels okay He denies any headaches or dizziness Denies any chest pains, no SOB No nausea/vomiting, no abdominal pain No change in bowel habits noted States that he has been able to lose a lot of weight since his last visit by watching his diet and exercising regularly Notes (+) on and off left shoulder pain lately - states that it sometimes feels like how his knees felt in the past when he was going through some arthritis flare ups in his knees before Does not recall any recent injury or trauma to his shoulder Needs his Epipen Rx refilled Had his follow up labs done yesterday - to discuss his results ON LICENSE OF [facility] Medical History (Updated 01/04/24 @ 10:42 by Hernandez Martinez MD) Renal cysts, acquired, bilateral Benign microscopic hematuria Elevated blood pressure reading Impaired fasting glucose Primary osteoarthritis of both knees Mixed hyperlipidemia Normal colonoscopy CKD (chronic kidney disease) stage 3, GFR 30-59 ml/min BPH (benign prostatic hyperplasia) Overweight (BMI 25.0-29.9) Surgical History (Updated 01/04/24 @ 10:25 by Hernandez Martinez MD) Hx of colonoscopy History of prostate surgery (~08/2018) Family History Father Parkinson's disease Mother Alzheimer's disease Social History Housing: House Alcohol intake: current Alcohol intake frequency: holidays/special occasions only Alcohol type: beer Patient Tobacco Use Status: Former Tobacco user e-Cigarette/Vaping Use: Never Used Second Hand Smoke Exposure: Yes service: No Current occupational status: retired Cognitive needs: No Hearing needs: Yes Vision needs: Yes Questionnaire PHQ-9 Over the last 2 weeks, how often have you been bothered by any of the following problems? 1. Little interest or pleasure in doing things: not at all 2. Feeling down, depressed, or hopeless: not at all 3. Trouble falling or staying asleep, or sleeping too much: not at all 4. Feeling tired or having little energy: not at all 5. Poor appetite or overeating: not at all 6. Feeling bad about yourself - or that you are a failure or have let yourself or your family down: not at all 7. Trouble concentrating on things, such as reading the newspaper or watching television: not at all 8. Moving or speaking so slowly that other people could have noticed. Or the opposite - being so fidgety or restless that you have been moving around a lot more than usual: not at all 9. Thoughts that you would be better off or of hurting yourself in some way: not at all Total score: 0 Depression Screening Interpretation: Negative Depression Screening Done: Yes 10945 - PHQ-9 Billing: Yes Source: Developed by Drs. Michael Page, Cherie B.Nick Watts and colleagues, with an educational jules from [employer]. Thrive Questionnaire Date Thrive assessed: 01/04/24 I am a: Patient What is your living situation today?: I have a steady place to live Within the past 12 months, did the food you bought not last and you didn't have the money to get more?: Never true Within the past 12 months, did you worry whether your food would run out before you got money to buy more?: Never true Do you have trouble paying for medicines?: No Do you have trouble getting transportation to medical appointments?: No Do you have trouble paying your heating and electricity bill?: No Do you have trouble taking care of your child, family member or friend?: No Do you have trouble with day-to-day activities such as bathing, preparing meals, shopping, managing finances, etc.?: No Are you currently unemployed and looking for a job?: No Are you interested in more education?: No Please select the resources that you would like help with: None Currently or been in a relationship where the following occur: no concerns reported THRIVE Score: 0 AUDIT C Alcohol Use Questionnaire (AUDIT-C) 1. How often do you have a drink containing alcohol?: Monthly or less 2. How many drinks containing alcohol do you have on a typical day when you are drinking?: 1 or 2 3. How often do you have six or more drinks on one occasion?: Never Total Score: 1 Score Reviewed/Action Taken: Yes RACHEAL-7 AMB Questionnaire RACHEAL-7 Date RACHEAL - 7 assessed: 01/04/24 Feeling nervous, anxious, or on edge: 0 = Not at all Not being able to stop or control worryin = Not at all Worrying too much about different things: 0 = Not at all Trouble relaxin = Not at all Being so restless that it is hard to sit still: 0 = Not at all Becoming easily annoyed or irritable: 0 = Not at all Feeling afraid as if something awful might happen: 0 = Not at all Total RACHEAL-7 score (0-4 normal; 5-9 mild; 10-14 moderate; 15-21 severe): 0 Source: Developed by Drs. Michael Page, Nick Kirkpatrick and colleagues, with an educational jules from [employer]. RACHEAL-7 Assessment Billing RACHEAL-7 Assessment Tool: RACHEAL-7 Assessment 87855 Review of Systems Const Denies chills, Denies fatigue, Denies fever(s) and Denies headache(s) ENT Denies dysphagia, Denies dizziness, Denies otalgia, Denies headache(s), Denies neck pain, Denies odynophagia and Denies sore throat Card Denies chest pain, Denies palpitations and Denies dyspnea Resp Denies cough and Denies dyspnea GI Denies abdominal pain, Denies constipation, Denies dysphagia, Denies heartburn, Denies diarrhea, Denies nausea, Denies odynophagia and Denies vomiting Denies dysuria, Denies nocturia and Denies urinary frequency Musc Reports back pain (on and off), Reports arthralgias (left shoulder) and Denies neck pain Skin/Breast Denies rash Neuro Denies dizziness and Denies headache(s) Endo Denies fatigue and Denies palpitations Physical exam (Primary Care) Vital Signs: Last Vital Signs Pulse 78 01/04/24 09:44 BP 112/78 01/04/24 09:44 Pulse Ox 95 01/04/24 09:44 Oxygen Delivery Method Room Air 01/04/24 09:44 BMI result Body Mass Index 26.4 Tobacco/Smoking Status: Tobacco use Status Tobacco use date assessed 01/04/24 01/04/24 09:45 Patient Tobacco Use Status Former Tobacco user 01/04/24 09:45 e-Cigarette/Vaping Use Never Used 01/04/24 09:45 PHQ-9: PHQ-9 Score PHQ-9: Total score 0 01/04/24 09:45 Depression Screening Interpretation: Negative Thrive Assessment: Date of Thrive Assessment Date Thrive assessed 01/04/24 01/04/24 09:45 Currently or been in a relationship where the following occur: no concerns reported Const General: no acute distress and alert HENMT Ears: TM's normal bilaterally and EAC's normal Throat: Yes posterior oropharynx normal and Yes tonsils normal (no TP congestion) Neck Neck: Yes no lymphadenopathy and Yes supple Resp Auscultation: clear to auscultation bilaterally, no rales and no wheezes Cardio Rate: regular rate Rhythm: regular rhythm Heart sounds: no murmurs GI Palpation (GI): Soft to palpation and nontender Auscultation: normal bowel sounds General: Yes no CVA tenderness Back/Spine/Pelvis Back: no CVA tenderness Thoracic/Lumbar Spine: lumbar spinal tenderness (mild) Skin Rashes: no rashes Extrem General: Yes no clubbing, cyanosis or edema Left upper extremity: shoulder/upper arm Details: tenderness (mild) Location: of the A-C joint and normal ROM Results Reviewed Results Reviewed: Laboratory Tests 01/03/24 01/03/24 07:33 07:34 WBC 6.2 Hgb 16.2 Hct 50.3 Plt Count 181 Sodium 141 Potassium 4.3 Creatinine 1.35 Estimated GFR 52 Fasting Glucose 98 Calcium 9.6 AST 20 ALT 23 Triglycerides 117 Cholesterol 154 LDL Cholesterol, Calc 92 HDL Cholesterol 39 L 25-OH Vitamin D Total 37.9 TSH 2.11 Ur Specific [place] 1.020 Urine Protein Negative Urine Glucose (UA) Negative Urine Blood Small (1+) H Urine Nitrite Negative Ur Leukocyte Esterase Negative Assessment and Plan Assessment & Plan (1) Mixed hyperlipidemia: Code(s): E78.2 - Mixed hyperlipidemia Plan: Results of his labs done yesterday reviewed and discussed with patient - lipids are mostly unchanged although his serum TG level has improved significantly, likely a result of his recent weight loss Reinforced low cholesterol diet Continue Atorvastatin 10 mg QD and Fish Oil capsules 1000 mg QD Will recheck his labs and fasting lipids in 6 months for follow up (2) Elevated blood pressure reading: Code(s): R03.0 - Elevated blood-pressure reading, without diagnosis of hypertension Plan: Reinforced low sodium diet - goal is systolic BP of at least 130 to 140 mm or less Advised that his blood pressure has improved a lot with his recent weight loss Patient is reminded to monitor his blood pressure regularly (3) CKD (chronic kidney disease) stage 3, GFR 30-59 ml/min: Code(s): N18.30 - Chronic kidney disease, stage 3 unspecified Qualifiers: Chronic kidney disease stage 3 subtype: stage 3b (GFR 30-44) Qualified Code(s): N18.32 - Chronic kidney disease, stage 3b Plan: Patient is advised that his serum creatinine and GFR / renal function appear stable on his recent labs Will continue to monitor his GFR and serum creatinine regularly Patient is again encouraged to stay hydrated, exercise regularly, try to keep his blood pressure under control as best as he can and avoid taking any NSAIDs (4) Renal cysts, acquired, bilateral: Code(s): N28.1 - Cyst of kidney, acquired Plan: Renal US done in 06/2022 revealed (+) multiple bilateral renal cysts, with some of the larger cysts demonstrating thin internal septations. There were no suspicious mural nodules and no stones or obstructive uropathy noted but the cysts in both kidneys have increased in size when compared to his US done in 2018 Will continue monitoring this but more closely - will consider repeating a renal US when he returns for his follow up appt later this year (5) Impaired fasting glucose: Code(s): R73.01 - Impaired fasting glucose Plan: FBS was normal at 98 mg/dl on his labs done yesterday; his HgbA1c was normal at 5.5% when checked previously Reinforced low calorie diet/exercise as tolerated (6) Gout: Code(s): M10.9 - Gout, unspecified Qualifiers: Gout site: unspecified site Gout etiology: unspecified cause Chronicity: chronic Presence of tophus: without tophus Qualified Code(s): M1A.[id number] - Chronic gout, unspecified, without tophus (tophi) Plan: States that he's had no acute gout flare ups recently Reinforced low purine diet Will recheck his serum uric acid level in 4 months for follow up (7) BPH (benign prostatic hyperplasia): Code(s): N40.0 - Benign prostatic hyperplasia without lower urinary tract symptoms Qualifiers: Lower urinary tract symptom presence: symptoms absent Qualified Code(s): N40.0 - Benign prostatic hyperplasia without lower urinary tract symptoms Plan: S/P TURP a few years ago Is currently asymptomatic Follow up with urology as scheduled (8) Primary osteoarthritis of both knees: Comment: X-rays of both knees done in December 2016 showed (+) mild tricompartmental arthritis Code(s): M17.0 - Bilateral primary osteoarthritis of knee Plan: States that his knees have not bothered him much lately - symptoms have improved significantly with cortisone injections into the left knee in the past, most recently in April 2018 Follow up with orthopedics as scheduled (9) Left shoulder pain: Code(s): M25.512 - Pain in left shoulder Qualifiers: Chronicity: unspecified Qualified Code(s): M25.512 - Pain in left shoulder Plan: (+) Hx of shoulder dislocation in the past He denies any recent injury or trauma to his shoulder Declined offer to send him for shoulder x-rays at this time but advised that he can call for the x-ray orders at any time if he wants to get them done Have printed out some instructions for shoulder/rotator cuff exercises that he can do on his own and have advised him that if he can try to do these exercises regularly, they might help relieve his shoulder pain or at least help him manage them better (10) Benign microscopic hematuria: Code(s): R31.1 - Benign essential microscopic hematuria Plan: Asymptomatic - work ups done in the past have been negative; these appear to be more likely related to his renal cysts Will continue to monitor this regularly (11) Overweight (BMI 25.0-29.9): Code(s): E66.3 - Overweight Plan: Reinforced diet/exercise as tolerated/lose weight - he has been able to lose over 20 pounds since his last visit Plan Follow up in 6 months Orders: Orders Comprehensive [place]. Panel Fast 6 Months E78.00 - Pure hypercholesterolemia, unspecified Hemoglobin A1c 6 Months R73.01 - Impaired fasting glucose UA CC w/rflx Micro + Cult 6 Months R30.0 - Dysuria Complete Blood Count Auto Diff 6 Months D64.9 - Anemia, unspecified Lipid Panel 6 Months E78.00 - Pure hypercholesterolemia, unspecified Uric Acid 6 Months M10.9 - Gout, unspecified TSH reflex Free T4 6 Months E78.00 - Pure hypercholesterolemia, unspecified Vitamin D 25-OH Total 6 Months E55.9 - Vitamin D deficiency, unspecified Medications: Refilled epinephrine (EpiPen) for 2 doses 0.3 mg (0.3 mL) IM Q10M PRN 2 ea 0RF anaphylaxis M10.9 - Gout, unspecified Coding Level of Care Code Est Pt Level 4 (15639) Diagnoses Mixed hyperlipidemia E78.2 Elevated blood pressure reading R03.0 Stage 3b chronic kidney disease N18.32 Chronic kidney disease stage 3 subtype: stage 3b (GFR 30-44) Renal cysts, acquired, bilateral N28.1 Impaired fasting glucose R73.01 Chronic gout without tophus, unspecified cause, unspecified site [id number] Gout site: unspecified site Gout etiology: unspecified cause Chronicity: chronic Presence of tophus: without tophus Benign prostatic hyperplasia without lower urinary tract symptoms N40.0 Lower urinary tract symptom presence: symptoms absent Primary osteoarthritis of both knees M17.0 Left shoulder pain, unspecified chronicity M25.512 Chronicity: unspecified Benign microscopic hematuria R31.1 Overweight (BMI 25.0-29.9) E66.3 Additional Codes RACHEAL-7 Assessment Billing - RACHEAL-7 Assessment Tool: RACHEAL-7 Assessment 10698 ([id number])
== END 2024-01-04 10:35 | disposition home or self-care (01) ==
PROVIDERS: PCP Internal Medicine; Visit Provider Internal Medicine
DX: E78.2 Mixed hyperlipidemia (principal); R03.0 Elevated blood-pressure reading, without diagnosis of hypertension; N18.32 Chronic kidney disease, stage 3b; N28.1 Cyst of kidney, acquired; R73.01 Impaired fasting glucose; M1A.9XX0 Chronic gout, unspecified, without tophus (tophi); N40.0 Benign prostatic hyperplasia without lower urinary tract symptoms; M17.0 Bilateral primary osteoarthritis of knee; M25.512 Pain in left shoulder; R31.1 Benign essential microscopic hematuria; E66.3 Overweight
CPT/HCPCS: 99214

== ENCOUNTER 2024-07-05 06:50 | Outpatient (REF) | payer MEDICARE, OTHER, SELFPAY ==
[2024-07-05 07:06] LABS: MANUAL DIFF FLAG NO
[2024-07-05 07:53] LABS: Basophils Percent Auto 0.6 % (0-2); Eosinophils Absolute Auto 0.1 X10*3/uL (0.0-0.4); Eosinophils Percent Auto 1.1 % (0-4); Hematocrit 47.9 % (42.0-52.0); Hemoglobin 15.9 g/dl (14.0-18.0); Imm Gran Abs Auto 0.03 X10*3/uL (0.00-0.03); Imm Gran Pct Auto 0.5 % (0.0-0.4); Lymphocytes Absolute Auto 2.4 X10*3/uL (1.2-4.9); Lymphocytes Percent Auto 37.8 % (20-40); Mean Corpuscular HGB Conc 33.2 g/dl (31.0-36.0); Mean Corpuscular Hemoglobin 29.9 pg (27.0-33.0); Mean Corpuscular Volume 90.2 fL (80.0-98.0); Mean Platelet Volume 9.7 fL (9.4-12.4); Monocytes Absolute Auto 0.5 X10*3/uL (0.1-1.2); Monocytes Percent Auto 7.5 % (2-11); Neutrophils Absolute Auto 3.3 x10*3/uL (2.0-8.3); Neutrophils Percent Auto 52.5 % (45-73); Platelet Count 148 X10*3/uL (160-400); Red Blood Count 5.31 X10*6/uL (4.60-5.80); Red Cell Distribution Width 13.1 % (11.0-16.0); White Blood Count 6.3 X10*3/uL (4.8-10.8)
[2024-07-05 08:03] LABS: Appearance Urine Clear; Color Urine Yellow; Estimated Average Glucose 108 mg/dL; Glucose Urine UA Negative (Negative); Hemoglobin A1C 142.4624 umol/L; Hemoglobin A1c % 5.4 % (<6.0); Leukocyte Esterase Urine Negative (Negative); Nitrite Urine Negative (Negative); PH 5.5 (5.0-9.0); Total Hemoglobin (HGBA1C) 4068.9332 umol/L; UMIC TRIGGER UACC YES; Urine Blood Small (1+) (Negative); Urine Ketones Negative (Negative); Urine Protein Negative (Neg-Trace)
[2024-07-05 08:19] LABS: Bacteria Urine None Seen (None Seen); Hyaline Casts Urine 0-2 /LPF (0-2); Squamous Epithelial Cell Urine 0-2 /HPF (0-2); WBC Urine 0-5 /HPF (0-5)
[2024-07-05 08:26] LABS: Alanine Aminotransferase 35 U/L (0-40); Albumin Level 4.2 g/dL (3.5-5.0); Alkaline Phosphatase 78 U/L (39-117); Anion Gap 11 (12-20); Aspartate Amino Transferase 28 U/L (5-37); Blood Urea Nitrogen 27 mg/dL (9-16); Calcium 9.5 mg/dL (8.4-10.2); Carbon Dioxide 26 mmol/L (22-29); Chloride 108 mmol/L (96-108); Cholesterol 188 mg/dL (<200); Estimated Glomerular Filt Rate 50; Glucose Fasting 92 mg/dL (60-99); HDL Cholesterol 37 mg/dL (>40); LDL Cholesterol Calculated 122 mg/dL (<100); Potassium 4.3 mmol/L (3.3-5.1); Sodium 141 mmol/L (135-145); Total Protein 7.6 g/dL (6.5-8.0); Triglycerides 149 mg/dL (<150)
[2024-07-05 08:46] LABS: TSH reflex Free T4 2.34 uIU/mL (0.32-4.0); Vitamin D 25-OH Total 49.5 ng/mL (>30)
== END 2024-07-05 06:51 | disposition home or self-care (01) ==
LOC: HO.LAB 06:50
PROVIDERS: PCP Internal Medicine; Visit Provider Internal Medicine
DX: D64.9 Anemia, unspecified (principal); E78.00 Pure hypercholesterolemia, unspecified; M10.9 Gout, unspecified; E55.9 Vitamin D deficiency, unspecified; R73.01 Impaired fasting glucose; R30.0 Dysuria
CPT/HCPCS: 36415; 80053; 80061; 81001; 81003; 82306; 83036; 84443; 84550; 85025

== ENCOUNTER 2024-07-06 09:34 | Outpatient (AMB) | payer MEDICARE, OTHER, SELFPAY ==
[2024-07-06 09:51] VITALS: BP 120/78; PULSE 75; O2SAT 96; BMI 27.0
--- NOTE | 2024-07-06 09:51 | MHC.PC.OV ---
Vital Signs 07/06/24 09:51 Height 5 ft 7 in Weight 172 lb 6 oz BMI 27.0 BP 120/78 Blood Pressure Location Lt brachial Position Sitting Pulse 75 Pulse Source Pulse Oximeter Pulse Oximetry (%) 96 Oxygen Delivery Method Room Air Intake Visit Reasons: hyperlipidemia, IFG, CKD, gout Hoop Riveter Required: No Accompanied by: Self / Same As Patient Allergies Bee sting Allergy (Unknown, Uncoded 07/06/24 09:54) anaphylaxis bee stings Allergy (Unknown, Uncoded 07/06/24 09:54) Anaphylaxis Penicillin Allergy (Unknown, Uncoded 07/06/24 09:54) rash penicillin Allergy (Unknown, Uncoded 07/06/24 09:54) Rash Medication List - Last Reconciled 07/06/24 by Hernandez Martinez MD atorvastatin 10 mg PO DAILY colchicine (Colcrys) 0.6 mg PO DAILY 30 days epinephrine (EpiPen) 0.3 mg (0.3 mL) IM Q10M PRN indomethacin 25 mg PO TID PRN methocarbamol 750 mg PO Q8H PRN mometasone 0.1% 1 appl topical DAILY PRN omega-3 fatty acids (Fish Oil Concentrate) 1,000 mg PO DAILY Tobacco use date assessed: 01/04/24 Fall risk assessment: No Falls in past year Last assessed Fall Risk: 07/06/24 Dental Screening Dental Screen Date: 01/04/24 HPI hyperlipidemia, IFG, CKD, gout HPI Details Patient comes in today for his follow up visit States that he feels okay He denies any headaches or dizziness Denies any chest pains, no SOB No nausea/vomiting, no abdominal pain No change in bowel habits noted He had his follow up labs done yesterday - to discuss his results [facility] Medical History Renal cysts, acquired, bilateral Benign microscopic hematuria Elevated blood pressure reading Impaired fasting glucose Primary osteoarthritis of both knees Mixed hyperlipidemia Normal colonoscopy CKD (chronic kidney disease) stage 3, GFR 30-59 ml/min BPH (benign prostatic hyperplasia) Overweight (BMI 25.0-29.9) Surgical History Hx of colonoscopy History of prostate surgery (~08/2018) Family History Father Parkinson's disease Mother Alzheimer's disease Social History Housing: House Alcohol intake: current Alcohol intake frequency: holidays/special occasions only Alcohol type: beer Patient Tobacco Use Status: Former Tobacco user e-Cigarette/Vaping Use: Never Used Second Hand Smoke Exposure: Yes service: No Current occupational status: retired Cognitive needs: No Hearing needs: Yes Vision needs: Yes Questionnaire Thrive Questionnaire Date Thrive assessed: 01/04/24 RACHEAL-7 AMB Questionnaire RACHEAL-7 Date RACHEAL - 7 assessed: 01/04/24 Source: Developed by Drs. Michael Page, Cherie Watson, Nick Ha and colleagues, with an educational jules from [employer]. Review of Systems Const Denies chills, Denies fatigue, Denies fever(s) and Denies headache(s) ENT Denies dysphagia, Denies dizziness, Denies otalgia, Denies headache(s), Denies neck pain, Denies odynophagia and Denies sore throat Card Denies chest pain, Denies palpitations and Denies dyspnea Resp Denies cough and Denies dyspnea GI Denies abdominal pain, Denies constipation, Denies dysphagia, Denies heartburn, Denies diarrhea, Denies nausea, Denies odynophagia and Denies vomiting Denies dysuria, Denies nocturia and Denies urinary frequency Musc Reports back pain (on and off), Reports arthralgias (left shoulder) and Denies neck pain Skin/Breast Denies rash Neuro Denies dizziness and Denies headache(s) Endo Denies fatigue and Denies palpitations Physical exam (Primary Care) Vital Signs: Last Vital Signs Pulse 75 07/06/24 09:51 BP 120/78 07/06/24 09:51 Pulse Ox 96 07/06/24 09:51 Oxygen Delivery Method Room Air 07/06/24 09:51 BMI result Body Mass Index 27.0 Tobacco/Smoking Status: Tobacco use Status Tobacco use date assessed 01/04/24 07/06/24 09:53 Patient Tobacco Use Status Former Tobacco user 07/06/24 09:53 e-Cigarette/Vaping Use Never Used 07/06/24 09:53 Thrive Assessment: Date of Thrive Assessment Date Thrive assessed 01/04/24 07/06/24 09:53 Const General: no acute distress and alert HENMT Ears: TM's normal bilaterally and EAC's normal Throat: Yes posterior oropharynx normal and Yes tonsils normal (no TP congestion) Neck Neck: Yes no lymphadenopathy and Yes supple Resp Auscultation: clear to auscultation bilaterally, no rales and no wheezes Cardio Rate: regular rate Rhythm: regular rhythm Heart sounds: no murmurs GI Palpation (GI): Soft to palpation and nontender Auscultation: normal bowel sounds General: Yes no CVA tenderness Back/Spine/Pelvis Back: no CVA tenderness Thoracic/Lumbar Spine: lumbar spinal tenderness (mild) Skin Rashes: no rashes Extrem General: Yes no clubbing, cyanosis or edema Left upper extremity: shoulder/upper arm Details: tenderness (mild) Location: of the A-C joint and normal ROM Office Procedures Flu Questionnaire Does the patient have a severe egg allergy?: No Immunizations Fluarix Triv [id number] (PF) 45 mcg (15 mcg x 3)/0.5 mL IM syringe Performing Provider: Hernandez Martinez MD [facility] Documented (not given) by: NOHEMI Treviño on 07/06/24 09:53 Reason Not Given: Received Previously Results Reviewed Results Reviewed: Laboratory Tests 07/05/24 07:04 WBC 6.3 Hgb 15.9 Hct 47.9 Plt Count 148 L Sodium 141 Potassium 4.3 Creatinine 1.40 Estimated GFR 50 Fasting Glucose 92 Hemoglobin A1c % 5.4 Uric Acid 8.0 H Calcium 9.5 AST 28 ALT 35 Triglycerides 149 Cholesterol 188 LDL Cholesterol, Calc 122 H HDL Cholesterol 37 L 25-OH Vitamin D Total 49.5 TSH 2.34 Ur Specific [place] 1.020 Urine Protein Negative Urine Glucose (UA) Negative Urine Blood Small (1+) H Urine Nitrite Negative Ur Leukocyte Esterase Negative Coding Level of Care Code Est Pt Level 4 (97130) Complex EM visit Add On G2211 Diagnoses Mixed hyperlipidemia E78.2 Elevated blood pressure reading R03.0 Stage 3b chronic kidney disease N18.32 Chronic kidney disease stage 3 subtype: stage 3b (GFR 30-44) Impaired fasting glucose R73.01 Renal cysts, acquired, bilateral N28.1 Benign microscopic hematuria R31.1 Chronic gout without tophus, unspecified cause, unspecified site [id number] Gout site: unspecified site Gout etiology: unspecified cause Chronicity: chronic Presence of tophus: without tophus Benign prostatic hyperplasia without lower urinary tract symptoms N40.0 Lower urinary tract symptom presence: symptoms absent Primary osteoarthritis of both knees M17.0 Left shoulder pain, unspecified chronicity M25.512 Chronicity: unspecified Overweight (BMI 25.0-29.9) E66.3 Assessment & Plan Assessment & Plan (1) Mixed hyperlipidemia: Code(s): E78.2 - Mixed hyperlipidemia Category: Medical Plan: Results of his labs done yesterday reviewed and discussed with patient - he is cautioned that his LDL cholesterol has gone up by more than 30 points since his last visit Reinforced low cholesterol diet Continue Atorvastatin 10 mg QD and Fish Oil capsules 1000 mg QD Will recheck his labs and fasting lipids in 6 months for follow up - have advised patient that we may need to go up on his dose of Atorvastatin if his numbers do not improve by his next visit (2) Elevated blood pressure reading: Code(s): R03.0 - Elevated blood-pressure reading, without diagnosis of hypertension Category: Medical Plan: Reinforced low sodium diet - goal is systolic BP of at least 130 to 140 mm or less Patient is reminded to monitor his blood pressure regularly (3) CKD (chronic kidney disease) stage 3, GFR 30-59 ml/min: Code(s): N18.30 - Chronic kidney disease, stage 3 unspecified Category: Medical Qualifiers: Chronic kidney disease stage 3 subtype: stage 3b (GFR 30-44) Qualified Code(s): N18.32 - Chronic kidney disease, stage 3b Plan: Patient is advised that his serum creatinine and GFR / renal function appear stable on his recent labs Will continue to monitor his GFR and serum creatinine regularly Patient is again encouraged to stay hydrated, exercise regularly, try to keep his blood pressure under control as best as he can and avoid taking any NSAIDs (4) Impaired fasting glucose: Code(s): R73.01 - Impaired fasting glucose Category: Medical Plan: His FBS was normal at 92 mg/dl and HgbA1c was normal at 5.4% on his labs done yesterday Reinforced low calorie diet/exercise as tolerated (5) Renal cysts, acquired, bilateral: Code(s): N28.1 - Cyst of kidney, acquired Category: Medical Plan: Renal US done in 06/2022 revealed (+) multiple bilateral renal cysts, with some of the larger cysts demonstrating thin internal septations. There were no suspicious mural nodules and no stones or obstructive uropathy noted but the cysts in both kidneys have increased in size when compared to his US done in 2018 Will continue monitoring this but more closely - will consider repeating a renal US when he returns for his follow up appt next spring (2024) (6) Benign microscopic hematuria: Code(s): R31.1 - Benign essential microscopic hematuria Category: Medical Plan: Asymptomatic - work ups done in the past have been negative; these appear to be more likely related to his renal cysts Will continue to monitor this regularly (7) Gout: Code(s): M10.9 - Gout, unspecified Category: Medical Qualifiers: Gout site: unspecified site Gout etiology: unspecified cause Chronicity: chronic Presence of tophus: without tophus Qualified Code(s): [id number].[id number] - Chronic gout, unspecified, without tophus (tophi) Plan: His serum uric acid is still elevated at 8.0 on his labs done yesterday but patient states that he's had no acute flare ups of gout lately He still has his Colchicine 0.6 mg Rx but states that he has not taken it in a while now since he's had no gout flare ups lately Reinforced low purine diet (8) BPH (benign prostatic hyperplasia): Code(s): N40.0 - Benign prostatic hyperplasia without lower urinary tract symptoms Category: Medical Qualifiers: Lower urinary tract symptom presence: symptoms absent Qualified Code(s): N40.0 - Benign prostatic hyperplasia without lower urinary tract symptoms Plan: S/P TURP a few years ago He is currently asymptomatic Follow up with urology as scheduled (9) Primary osteoarthritis of both knees: Comment: X-rays of both knees done in December 2016 showed (+) mild tricompartmental arthritis Code(s): M17.0 - Bilateral primary osteoarthritis of knee Category: Medical Plan: Patient states that his knees have not been bothering him too much lately, and that they have improved significantly with cortisone injections into the left knee in the past, most recently in April 2018 Follow up with orthopedics as scheduled (10) Left shoulder pain: Code(s): M25.512 - Pain in left shoulder Category: Medical Qualifiers: Chronicity: unspecified Qualified Code(s): M25.512 - Pain in left shoulder Plan: (+) Hx of shoulder dislocation in the past; he denies any other recent injury or trauma to his shoulder He has declined offer to send him for shoulder x-rays, as he states that his shoulder is more of a nagging issue and bothers him every now and then but not consistently - have advised him that he can call for the x-ray orders at any time if he wants to get them done Have given him before some instructions for shoulder/rotator cuff exercises that he can do on his own and have advised him that if he can try to do these exercises regularly, they might help relieve his shoulder pain or at least help him manage them better (11) Overweight (BMI 25.0-29.9): Code(s): E66.3 - Overweight Category: Medical Plan: Reinforced diet/exercise as tolerated/lose weight Plan Follow up in 6 months Orders: Orders Influenza [id number] Immunization Today Z23 - Encounter for immunization Lipid Panel 6 Months E78.00 - Pure hypercholesterolemia, unspecified UA CC w/rflx Micro + Cult 6 Months R30.0 - Dysuria Uric Acid 6 Months M10.9 - Gout, unspecified Urine Cytology 6 Months R31.1 - Benign essential microscopic hematuria Complete Blood Count Auto Diff 6 Months D64.9 - Anemia, unspecified Comprehensive [place]. Panel Fast 6 Months E78.00 - Pure hypercholesterolemia, unspecified Vitamin D 25-OH Total 6 Months E55.9 - Vitamin D deficiency, unspecified
== END 2024-07-06 10:16 | disposition home or self-care (01) ==
PROVIDERS: PCP Internal Medicine; Visit Provider Internal Medicine
DX: E78.2 Mixed hyperlipidemia (principal); R03.0 Elevated blood-pressure reading, without diagnosis of hypertension; N18.32 Chronic kidney disease, stage 3b; R73.01 Impaired fasting glucose; N28.1 Cyst of kidney, acquired; R31.1 Benign essential microscopic hematuria; M1A.9XX0 Chronic gout, unspecified, without tophus (tophi); N40.0 Benign prostatic hyperplasia without lower urinary tract symptoms; M17.0 Bilateral primary osteoarthritis of knee; M25.512 Pain in left shoulder; E66.3 Overweight; Z23 Encounter for immunization

== ENCOUNTER → 2024-07-06 09:34 | Outpatient (BNVA) | payer MEDICARE, OTHER, SELFPAY | PROVIDERS: PCP Internal Medicine; Visit Provider Internal Medicine | DX: E78.2 Mixed hyperlipidemia (principal); R03.0 Elevated blood-pressure reading, without diagnosis of hypertension; N18.32 Chronic kidney disease, stage 3b; R73.01 Impaired fasting glucose; N28.1 Cyst of kidney, acquired; R31.1 Benign essential microscopic hematuria; M1A.9XX0 Chronic gout, unspecified, without tophus (tophi); N40.0 Benign prostatic hyperplasia without lower urinary tract symptoms; M17.0 Bilateral primary osteoarthritis of knee; E66.3 Overweight; Z68.27 Body mass index [BMI] 27.0-27.9, adult; Z71.3 Dietary counseling and surveillance | CPT/HCPCS: 90471; 99212 ==

== ENCOUNTER 2025-01-07 07:04 | Outpatient (REF) | payer MEDICARE, OTHER, SELFPAY ==
[2025-01-07 07:20] LABS: MANUAL DIFF FLAG NO
[2025-01-07 08:05] LABS: Basophils Absolute Auto 0.1 X10*3/uL (0.0-0.2); Basophils Percent Auto 0.7 % (0-2); Eosinophils Absolute Auto 0.1 X10*3/uL (0.0-0.4); Hemoglobin 16.7 g/dl (14.0-18.0); Imm Gran Abs Auto 0.04 X10*3/uL (0.00-0.03); Imm Gran Pct Auto 0.6 % (0.0-0.4); Lymphocytes Absolute Auto 2.1 X10*3/uL (1.2-4.9); Lymphocytes Percent Auto 29.7 % (20-40); Mean Corpuscular HGB Conc 33.4 g/dl (31.0-36.0); Mean Corpuscular Hemoglobin 29.8 pg (27.0-33.0); Mean Corpuscular Volume 89.1 fL (80.0-98.0); Mean Platelet Volume 9.6 fL (9.4-12.4); Monocytes Absolute Auto 0.5 X10*3/uL (0.1-1.2); Monocytes Percent Auto 6.6 % (2-11); Neutrophils Absolute Auto 4.3 x10*3/uL (2.0-8.3); Neutrophils Percent Auto 61.4 % (45-73); Platelet Count 172 X10*3/uL (160-400); Red Blood Count 5.61 X10*6/uL (4.60-5.80); Red Cell Distribution Width 13.1 % (11.0-16.0)
[2025-01-07 08:06] LABS: Urine Cytology See Pathology rpt
[2025-01-07 08:13] LABS: Appearance Urine Clear; Color Urine Yellow; Glucose Urine UA Negative (Negative); Leukocyte Esterase Urine Negative (Negative); Nitrite Urine Negative (Negative); PH 5.5 (5.0-9.0); UMIC TRIGGER UACC YES; Urine Blood Trace (Negative); Urine Ketones Trace mg/dL (Negative); Urine Protein Negative (Neg-Trace)
[2025-01-07 08:18] LABS: Bacteria Urine None Seen (None Seen); Hyaline Casts Urine 0-2 /LPF (0-2); RBC Urine 0-2 /HPF (0-2); Squamous Epithelial Cell Urine 0-2 /HPF (0-2); WBC Urine 0-5 /HPF (0-5)
[2025-01-07 08:40] LABS: Alanine Aminotransferase 33 U/L (0-40); Albumin Level 4.3 g/dL (3.5-5.0); Alkaline Phosphatase 84 U/L (39-117); Anion Gap 12 (12-20); Aspartate Amino Transferase 26 U/L (5-37); Bilirubin Total 0.9 mg/dL (0.0-1.0); Blood Urea Nitrogen 28 mg/dL (9-16); Calcium 9.3 mg/dL (8.4-10.2); Carbon Dioxide 26 mmol/L (22-29); Chloride 106 mmol/L (96-108); Cholesterol 170 mg/dL (<200); Estimated Glomerular Filt Rate 44; Glucose Fasting 97 mg/dL (60-99); HDL Cholesterol 37 mg/dL (>40); LDL Cholesterol Calculated 104 mg/dL (<100); Potassium 4.3 mmol/L (3.3-5.1); Sodium 140 mmol/L (135-145); Total Protein 7.9 g/dL (6.5-8.0); Triglycerides 147 mg/dL (<150); Uric Acid 8.1 mg/dL (3.4-7.0)
[2025-01-07 08:58] LABS: Vitamin D 25-OH Total 42.8 ng/mL (>30)
== END 2025-01-07 07:05 | disposition home or self-care (01) ==
LOC: HO.LAB 07:04
PROVIDERS: PCP Internal Medicine; Visit Provider Internal Medicine
DX: E78.00 Pure hypercholesterolemia, unspecified (principal); M10.9 Gout, unspecified; R31.1 Benign essential microscopic hematuria; D64.9 Anemia, unspecified; E55.9 Vitamin D deficiency, unspecified; R30.0 Dysuria
CPT/HCPCS: 36415; 80053; 80061; 81001; 82306; 84550; 85025; 88112

== ENCOUNTER 2025-01-08 09:24 | Outpatient (AMB) | payer MEDICARE, OTHER, SELFPAY ==
[2025-01-08 09:30] VITALS: BP 112/80; PULSE 84; O2SAT 98; BMI 27.9
--- NOTE | 2025-01-08 09:30 | MHC.PC.OV ---
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 Accompanied by: Self / Same As Patient Allergies Bee sting Allergy (Unknown, Uncoded 01/08/25 09:43) anaphylaxis bee stings Allergy (Unknown, Uncoded 01/08/25 09:43) Anaphylaxis Penicillin Allergy (Unknown, Uncoded 01/08/25 09:43) rash penicillin Allergy (Unknown, Uncoded 01/08/25 09:43) Rash Medication List - Last Reconciled 01/08/25 by Hernandez Martinez MD atorvastatin 10 mg PO DAILY colchicine (Colcrys) 0.6 mg PO DAILY 30 days epinephrine (EpiPen) 0.3 mg (0.3 mL) IM Q10M PRN mometasone 0.1% 1 appl topical DAILY PRN omega-3 fatty acids (Fish Oil Concentrate) 1,000 mg PO DAILY Tobacco use date assessed: 01/08/25 Fall risk assessment: No Falls in past year Last assessed Fall Risk: 01/08/25 Dental Screening Dental Screen Date: 01/08/25 Did you have a dental visit in the last 12 months?: Yes Did you have a dental problem in the last 6 months where you did not have access to dental care?: No Was dental information given to patient?: Patient has dentist HPI hyperlipidemia, IFG, elevated BP, gout, CKD HPI Details Patient comes in today for his follow up visit for his hyperlipidemia and gout States that he feels okay and he denies any acute gout flares lately He denies any headaches or dizziness Denies any chest pains, no SOB No nausea/vomiting, no abdominal pain No change in bowel habits noted He had his follow up labs done yesterday - to discuss his results [facility] Medical History Renal cysts, acquired, bilateral Benign microscopic hematuria Elevated blood pressure reading Impaired fasting glucose Primary osteoarthritis of both knees Mixed hyperlipidemia Normal colonoscopy CKD (chronic kidney disease) stage 3, GFR 30-59 ml/min BPH (benign prostatic hyperplasia) Overweight (BMI 25.0-29.9) Surgical History Hx of colonoscopy History of prostate surgery (~08/2018) Family History Father Parkinson's disease Mother Alzheimer's disease Social History Housing: House Alcohol intake: current Alcohol intake frequency: holidays/special occasions only Alcohol type: beer Patient Tobacco Use Status: Former Tobacco user e-Cigarette/Vaping Use: Never Used Second Hand Smoke Exposure: Yes service: No Current occupational status: retired Cognitive needs: No Hearing needs: Yes Vision needs: Yes Questionnaire PHQ-9 Over the last 2 weeks, how often have you been bothered by any of the following problems? 1. Little interest or pleasure in doing things: not at all 2. Feeling down, depressed, or hopeless: not at all 3. Trouble falling or staying asleep, or sleeping too much: not at all 4. Feeling tired or having little energy: not at all 5. Poor appetite or overeating: not at all 6. Feeling bad about yourself - or that you are a failure or have let yourself or your family down: not at all 7. Trouble concentrating on things, such as reading the newspaper or watching television: not at all 8. Moving or speaking so slowly that other people could have noticed. Or the opposite - being so fidgety or restless that you have been moving around a lot more than usual: not at all 9. Thoughts that you would be better off or of hurting yourself in some way: not at all Total score: 0 Depression Screening Interpretation: Negative Depression Screening Done: Yes 75001 - PHQ-9 Billing: Yes Source: Developed by Drs. Michael Page, Cherie Watson, Nick Ha and colleagues, with an educational jules from [employer]. Thrive Questionnaire Date Thrive assessed: 01/08/25 I am a: Patient What is your living situation today?: I have a steady place to live Within the past 12 months, did the food you bought not last and you didn't have the money to get more?: Never true Within the past 12 months, did you worry whether your food would run out before you got money to buy more?: Never true Do you have trouble paying for medicines?: No Do you have trouble getting transportation to medical appointments?: No Do you have trouble paying your heating and electricity bill?: No Do you have trouble taking care of your child, family member or friend?: No Do you have trouble with day-to-day activities such as bathing, preparing meals, shopping, managing finances, etc.?: No Are you currently unemployed and looking for a job?: No Are you interested in more education?: No Please select the resources that you would like help with: None Currently or been in a relationship where the following occur: No concerns reported THRIVE Score: 0 AUDIT C Alcohol Use Questionnaire (AUDIT-C) 1. How often do you have a drink containing alcohol?: Monthly or less 2. How many drinks containing alcohol do you have on a typical day when you are drinking?: 1 or 2 3. How often do you have six or more drinks on one occasion?: Never Total Score: 1 Score Reviewed/Action Taken: Yes RACHEAL-7 AMB Questionnaire RACHEAL-7 Date RACHEAL - 7 assessed: 01/08/25 Feeling nervous, anxious, or on edge: 0 = Not at all Not being able to stop or control worryin = Not at all Worrying too much about different things: 0 = Not at all Trouble relaxin = Not at all Being so restless that it is hard to sit still: 0 = Not at all Becoming easily annoyed or irritable: 0 = Not at all Feeling afraid as if something awful might happen: 0 = Not at all Total RACHEAL-7 score (0-4 normal; 5-9 mild; 10-14 moderate; 15-21 severe): 0 Source: Developed by Drs. Michael Page, Cherie Watson, Nick Ha and colleagues, with an educational jules from [employer]. Review of Systems Const Denies chills, Denies fatigue, Denies fever(s) and Denies headache(s) ENT Denies dysphagia, Denies dizziness, Denies otalgia, Denies headache(s), Denies neck pain, Denies odynophagia and Denies sore throat Card Denies chest pain, Denies palpitations and Denies dyspnea Resp Denies chest congestion, Denies cough and Denies dyspnea GI Denies abdominal pain, Denies constipation, Denies dysphagia, Denies heartburn, Denies diarrhea, Denies nausea, Denies odynophagia and Denies vomiting Denies difficulty urinating, Denies dysuria, Denies nocturia and Denies urinary frequency Musc Reports back pain (on and off), Reports arthralgias (left shoulder) and Denies neck pain Skin/Breast Denies rash Neuro Denies dizziness and Denies headache(s) Endo Denies fatigue and Denies palpitations Physical exam (Primary Care) Vital Signs: Last Vital Signs Pulse 84 01/08/25 09:30 BP 112/80 01/08/25 09:30 Pulse Ox 98 01/08/25 09:30 Oxygen Delivery Method Room Air 01/08/25 09:30 BMI result Body Mass Index 27.9 Tobacco/Smoking Status: Tobacco use Status Tobacco use date assessed 01/08/25 01/08/25 09:37 Patient Tobacco Use Status Former Tobacco user 01/08/25 09:37 e-Cigarette/Vaping Use Never Used 01/08/25 09:37 PHQ-9: PHQ-9 Score PHQ-9: Total score 0 01/08/25 09:37 Depression Screening Interpretation: Negative Thrive Assessment: Date of Thrive Assessment Date Thrive assessed 01/08/25 01/08/25 09:37 Currently or been in a relationship where the following occur: No concerns reported Const General: no acute distress and alert HENMT Ears: TM's normal bilaterally and EAC's normal Throat: Yes posterior oropharynx normal and Yes tonsils normal (no TP congestion) Neck Neck: Yes no lymphadenopathy and Yes supple Resp Auscultation: clear to auscultation bilaterally, no rales and no wheezes Cardio Rate: regular rate Rhythm: regular rhythm Heart sounds: no murmurs GI Palpation (GI): Soft to palpation and nontender Auscultation: normal bowel sounds General: Yes no CVA tenderness Back/Spine/Pelvis Back: no CVA tenderness Thoracic/Lumbar Spine: lumbar spinal tenderness (mild) Skin Rashes: no rashes Extrem General: Yes no clubbing, cyanosis or edema Left upper extremity: shoulder/upper arm Details: tenderness (mild) Location: of the A-C joint and normal ROM Results Reviewed Results Reviewed: Laboratory Tests 01/07/25 01/07/25 07:16 07:19 WBC 7.0 Hgb 16.7 Hct 50.0 Plt Count 172 Sodium 140 Potassium 4.3 Creatinine 1.55 H Estimated GFR 44 Fasting Glucose 97 Uric Acid 8.1 H Calcium 9.3 AST 26 ALT 33 Triglycerides 147 Cholesterol 170 LDL Cholesterol, Calc 104 H HDL Cholesterol 37 L 25-OH Vitamin D Total 42.8 Ur Specific [place] 1.020 Urine Protein Negative Urine Glucose (UA) Negative Urine Blood Trace H Urine Nitrite Negative Ur Leukocyte Esterase Negative Coding Level of Care Code Est Pt Level 4 (52922) Complex EM visit Add On G2211 Diagnoses Mixed hyperlipidemia E78.2 Elevated blood pressure reading R03.0 Stage 3b chronic kidney disease N18.32 Chronic kidney disease stage 3 subtype: stage 3b (GFR 30-44) Renal cysts, acquired, bilateral N28.1 Impaired fasting glucose R73.01 Benign microscopic hematuria R31.1 Chronic gout without tophus, unspecified cause, unspecified site [id number] Gout site: unspecified site Gout etiology: unspecified cause Chronicity: chronic Presence of tophus: without tophus Benign prostatic hyperplasia without lower urinary tract symptoms N40.0 Lower urinary tract symptom presence: symptoms absent Primary osteoarthritis of both knees M17.0 Left shoulder pain, unspecified chronicity M25.512 Chronicity: unspecified Overweight (BMI 25.0-29.9) E66.3 Additional Codes PHQ-9 - 17500 - PHQ-9 Billing: Yes ([id number]) Assessment & Plan Assessment & Plan (1) Mixed hyperlipidemia: Code(s): E78.2 - Mixed hyperlipidemia Category: Medical Plan: Results of his labs done yesterday reviewed and discussed with patient - his cholesterol levels have improved slightly from previous Reinforced low cholesterol diet Continue Atorvastatin 10 mg QD and Fish Oil capsules 1000 mg QD Will recheck his labs and fasting lipids in 6 months for follow up (2) Elevated blood pressure reading: Code(s): R03.0 - Elevated blood-pressure reading, without diagnosis of hypertension Category: Medical Plan: Improved - his blood pressure has been well-controlled lately Reinforced low sodium diet - goal is systolic BP of at least 130 to 140 mm or less Patient is reminded to continue monitoring his blood pressure regularly (3) CKD (chronic kidney disease) stage 3, GFR 30-59 ml/min: Code(s): N18.30 - Chronic kidney disease, stage 3 unspecified Category: Medical Qualifiers: Chronic kidney disease stage 3 subtype: stage 3b (GFR 30-44) Qualified Code(s): N18.32 - Chronic kidney disease, stage 3b Plan: Patient is advised that his serum creatinine and GFR / renal function appears to have declined slightly on his recent labs He is again reminded to stay hydrated as best as he can, and that exercising regularly and keeping his blood pressure under good control and avoiding any NSAIDs can help slow down the decline of his renal function Will send him for repeat bilateral renal US for follow up, especially since he had significant renal cysts noted on his previous US in 2021 (4) Renal cysts, acquired, bilateral: Code(s): N28.1 - Cyst of kidney, acquired Category: Medical Plan: Renal US done in 06/2022 revealed (+) multiple bilateral renal cysts, with some of the larger cysts demonstrating thin internal septations. There were no suspicious mural nodules and no stones or obstructive uropathy noted but the cysts in both kidneys have increased in size when compared to his US done in 2018 Will continue monitoring this but more closely - will now send him for repeat renal US for follow up (5) Impaired fasting glucose: Code(s): R73.01 - Impaired fasting glucose Category: Medical Plan: His FBS was normal at 97 mg/dl on his labs done yesterday; HgbA1c was normal at 5.4% when checked previously Reinforced low calorie diet/exercise as tolerated (6) Benign microscopic hematuria: Code(s): R31.1 - Benign essential microscopic hematuria Category: Medical Plan: Asymptomatic - work ups done in the past have been negative; these appear to be more likely related to his renal cysts Will continue to monitor this regularly (7) Gout: Code(s): M10.9 - Gout, unspecified Category: Medical Qualifiers: Gout site: unspecified site Gout etiology: unspecified cause Chronicity: chronic Presence of tophus: without tophus Qualified Code(s): M1A.9XX0 - Chronic gout, unspecified, without tophus (tophi) Plan: His serum uric acid is still elevated at 8.1 on his labs done yesterday Patient states that he's had no acute flare ups of gout lately He still has his Colchicine 0.6 mg Rx but states that he has not taken it in a while now since he's had no gout flare ups lately Reinforced low purine diet (8) BPH (benign prostatic hyperplasia): Code(s): N40.0 - Benign prostatic hyperplasia without lower urinary tract symptoms Category: Medical Qualifiers: Lower urinary tract symptom presence: symptoms absent Qualified Code(s): N40.0 - Benign prostatic hyperplasia without lower urinary tract symptoms Plan: S/P TURP a few years ago He is currently asymptomatic Follow up with urology as scheduled (9) Primary osteoarthritis of both knees: Comment: X-rays of both knees done in December 2016 showed (+) mild tricompartmental arthritis Code(s): M17.0 - Bilateral primary osteoarthritis of knee Category: Medical Plan: Patient states that his knees have not been bothering him too much lately, and that they have improved significantly with cortisone injections into the left knee in the past, most recently in April 2018 Follow up with orthopedics as scheduled or as needed (10) Left shoulder pain: Code(s): M25.512 - Pain in left shoulder Category: Medical Qualifiers: Chronicity: unspecified Qualified Code(s): M25.512 - Pain in left shoulder Plan: (+) Hx of shoulder dislocation in the past; he denies any other recent injury or trauma to his shoulder He has declined offer to send him for shoulder x-rays, as he states that his shoulder is more of a nagging issue and bothers him every now and then but not consistently - have advised him that he can call for the x-ray orders at any time if he wants to get them done Have given him before some instructions for shoulder/rotator cuff exercises that he can do on his own and have advised him that if he can try to do these exercises regularly, they might help relieve his shoulder pain or at least help him manage them better (11) Overweight (BMI 25.0-29.9): Code(s): E66.3 - Overweight Category: Medical Plan: Reinforced diet/exercise as tolerated/lose weight Plan Follow up in 6 months Orders: Orders Complete Blood Count Auto Diff 6 Months D64.9 - Anemia, unspecified Comprehensive [place]. Panel Fast 6 Months E78.00 - Pure hypercholesterolemia, unspecified US renal BI Today N18.32 - Chronic kidney disease, stage 3b, N28.1 - Cyst of kidney, acquired Lipid Panel 6 Months E78.00 - Pure hypercholesterolemia, unspecified TSH reflex Free T4 6 Months E78.00 - Pure hypercholesterolemia, unspecified UA CC w/rflx Micro + Cult 6 Months R30.0 - Dysuria Vitamin D 25-OH Total 6 Months E55.9 - Vitamin D deficiency, unspecified
== END 2025-01-08 09:56 | disposition home or self-care (01) ==
LOC: HO.HMCH 09:25
PROVIDERS: PCP Internal Medicine; Visit Provider Internal Medicine
DX: E78.2 Mixed hyperlipidemia (principal); R03.0 Elevated blood-pressure reading, without diagnosis of hypertension; N18.32 Chronic kidney disease, stage 3b; N28.1 Cyst of kidney, acquired; R73.01 Impaired fasting glucose; R31.1 Benign essential microscopic hematuria; M1A.9XX0 Chronic gout, unspecified, without tophus (tophi); N40.0 Benign prostatic hyperplasia without lower urinary tract symptoms; M17.0 Bilateral primary osteoarthritis of knee; M25.512 Pain in left shoulder; E66.3 Overweight

== ENCOUNTER → 2025-01-08 09:24 | Outpatient (BNVA) | payer MEDICARE, OTHER, SELFPAY | PROVIDERS: PCP Internal Medicine; Visit Provider Internal Medicine | DX: E78.2 Mixed hyperlipidemia (principal); R03.0 Elevated blood-pressure reading, without diagnosis of hypertension; N18.32 Chronic kidney disease, stage 3b; N28.1 Cyst of kidney, acquired; R73.01 Impaired fasting glucose; R31.1 Benign essential microscopic hematuria; M1A.9XX0 Chronic gout, unspecified, without tophus (tophi); N40.0 Benign prostatic hyperplasia without lower urinary tract symptoms; M17.0 Bilateral primary osteoarthritis of knee; M25.512 Pain in left shoulder; E66.3 Overweight; Z68.27 Body mass index [BMI] 27.0-27.9, adult; Z71.3 Dietary counseling and surveillance | CPT/HCPCS: 96127; 99212 ==

== ENCOUNTER 2025-01-16 09:13 | Outpatient (REF) | payer MEDICARE, OTHER, SELFPAY ==
--- NOTE | ~2025-01-16 | US_ITS ---
EXAMINATION: Ultrasound renal bilaterally. CLINICAL INFORMATION: Renal cyst, acquired. Decreased GFR. COMPARISON: June 30, 2022. TECHNIQUE: Real-time ultrasound kidneys using grayscale technique. FINDINGS: Right kidney: 13 x 6 x 6 cm. Increased echotexture. Renal cortical thinning. No hydronephrosis. Multifocal, different sizes, round and ovoid shaped well-defined anechoic lesions throughout the parenchyma, the largest measures 8.6 cm. Left kidney: 13 x 7 x 6 cm. Increased echotexture. Renal cortical thinning. No hydronephrosis. There are multifocal, different sizes well-defined round and ovoid shaped anechoic lesions throughout the parenchyma, the largest measures 5.9 cm. US/US renal BI IMPRESSION: Multiple different sizes simple renal cysts, bilaterally. No hydronephrosis. Concerning medical renal disease. Electronically signed by: Hector Newell MD 01/16/2025 10:36 AM EDT
--- OUTSIDE RECORDS SUMMARY | 2025-01-16 09:45 | XMS_ITS | Patient Health Record ---
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 Name Role Phone Juan WINN, Hernandez Primary Care Provider Michael Burgos [phone] Allergies Allergen (clinical drug ingredient) Drug/Non Drug Allergy documented on EMR Reaction Allergy Type Onset Date Status Penicillin Unknown Drug Allergy Active Reason For Referral No Information Medications Medication SIG (Take, Route, Frequency, Duration) Notes Start Date End Date Status Fish Oil 1000 MG 1 capsule Orally Onc e a day Active Atorvastatin Calcium 10 MG 1 tablet Oral ly Once a day Active Problems Problem Type SNOMED Code ICD Code Onset Dates Problem Status W/U Status Risk Notes Problem Long-term current use of drug therapy (631540004) Encounter for long-term (current) use of other medications (V58.69) Active confirmed Problem Colon cancer screening (743260512) Colon cancer screening (V76.51) Active confirmed Problem Colon cancer screening (172623378) Colon cancer screening (Z12.11) Active confirmed Problem Long-term current use of anticoagulant (355753442) termite control representative (current) use of anticoagulants (Z79.01) Active confirmed Problem Preprocedural examination (314095195862387) Preprocedural examination (Z01.818) Active confirmed Vital Signs Blood pressure diastolic 11 mm Hg 11/08/2024 Height 66.75 in 11/08/2024 Blood pressure systolic 111 mm Hg 11/08/2024 Weight 182 lbs 11/08/2024 BMI 28.72 kg/m2 11/08/2024 Procedures Procedure Date Ordered Date Performed Result Body Sit e COLONOSCOPY 11/08/2024 N/A Encounters Encounter Location Date Provider Diagnosis [facility] [address] [place] [address] 11/08/2024 Michael Krishnamurthy Preprocedural examination Z01.818 ; jail (current) use of anticoagulants Z79.01 and Colon cancer screening Z12.11 Assessments Encounter Date Diagnosis (ICD Code) Assessment Notes Treatment Notes Treatment Clinical Notes Section Notes 11/08/2024 jail (current) use of anticoagulants (ICD-10 - Z79.01) e 11/08/2024 Preprocedural examination (ICD-10 - Z01.818) e 11/08/2024 Colon cancer screening (ICD-10 - Z12.11) e Plan Of Treatment Pending Test Test Name Order Date COLONOSCOPY 11/08/2024 Future Test Test Name Order Date COLONOSCOPY 01/09/2014 Next Appt Details Provider Name:Michael Krishnamurthy , 02/20/2025 10:30:00 AM, [address] [place] [address] , [place], [place], [id number], Insurance Providers Payer Name Payer Address Payer Phone Subscriber Number Group Number Insured Name Patient Relationship to Insured Coverage Start Date Coverage End Date MEDICARE OF [place] [address] [place] [address] [id number] IMELDA ELLIS Self - patient is the insured 5 [employer] [address] [place] [id number] IMELDA ELLIS Self - patient is the insured Medical (General) History Medical History History ICD Code Denies ND,DM,CVA,Lung disease,renal dise ase Elevated Cholesterol Negative colon[place] [address] Gisella tavera CKD Negative screening colonoscopy in 2013 Surgical History Surgery Date(Month/Year) FINGERTIP REPAIR--had a skin graft
--- OUTSIDE RECORDS SUMMARY | 2025-01-16 09:45 | XMS_ITS ---
Author Organization [facility] Address [address] [place] [address] Care Team Providers Care Foil Wrapper Name Role Phone Juan WINN, Hernandez Primary Care Provider Michael Burgos [phone] Allergies Allergen (clinical drug ingredient) Drug/Non Drug Allergy documented on EMR Reaction Allergy Type Onset Date Status Penicillin Unknown Drug Allergy Active REASON FOR VISIT Patient presents today for a screening colonoscopy Medications Medication SIG (Take, Route, Frequency, Duration) Notes Start Date End Date Status Fish Oil 1000 MG 1 capsule Orally Onc e a day Active Atorvastatin Calcium 10 MG 1 tablet Oral ly Once a day Active Problems Problem Type SNOMED Code ICD Code Onset Dates Problem Status W/U Status Risk Notes Problem Preprocedural examination (406628116417477) Preprocedural examination (Z01.818) Active confirmed Problem Colon cancer screening (Z12.11) Active confirmed Problem Long-term current use of anticoagulant ([id number]) salvage determiner (current) use of anticoagulants (Z79.01) Active confirmed Vital Signs Blood pressure systolic 111 mm Hg 11/08/19 25 Blood pressure diastolic 11 mm Hg 025 Height 66.75 in 11/08/2024 Weight 182 lbs 11/08/2024 BMI 28.72 kg/m2 11/08/2024 Procedures Procedure Date Ordered Date Performed Result Body Sit e COLONOSCOPY 11/08/2024 N/A Encounters Encounter Location Date Provider Diagnosis [facility] [address] [place] [address] 11/08/2024 Michael Krishnamurthy Preprocedural examination Z01.818 ; nursing home (current) use of anticoagulants Z79.01 and Colon cancer screening Z12.11 Assessments Encounter Date Diagnosis (ICD Code) Assessment Notes Treatment Notes Treatment Clinical Notes Section Notes 11/08/2024 Preprocedural examination (ICD-10 - Z01.818) e 11/08/2024 nursing home (current) use of anticoagulants (ICD-10 - Z79.01) e 11/08/2024 Colon cancer screening (ICD-10 - Z12.11) e Plan Of Treatment Pending Test Test Name Order Date COLONOSCOPY 11/08/2024 Next Appt Details Follow Up: prn, Reason: Provider Name:Michael Krishnamurthy , 02/20/2025 10:30:00 AM, [address] [place] [address] , [place], [place], [id number], Progress Notes * IMELDA ELLISDOB:1950 (74 yo M)Acc No.[id number]:11/08/2024 Progress Notes Patient:?IMELDA ELLIS Provider:?Michael Krishnamurthy MD :1950???Age:74 Y???Sex:Male Rajinder e:11/08/2024 Address: [address], [place], [place] Pcp:Hernandez Martinez MD Subjective: * Chief Complaints: * ???Patient presents today fo r a screening colonoscopy * ROS:?General/Constitutional:?Change in appetite?denies.?Chills?denies.?Fatigue?denies.?Ophthalmologic:?Comments?all negative.?ENT:?Comments?all negative.?Respiratory:?hemoptysis?denies.?Cough?denies.?Cardiovascular:?Chest pain?denies.?Orthopnea?denies.?Gastrointestinal:?Comments?See HPI for details.?Genitourinary:?Hematuria?denies.?Dysuria?denies.?Musculoskeletal:?Painful joints?denies.?Weakness?denies.?Skin:?Itching?denies.?Rash?denies.?Neurologic:?Headache?denies.?Seizures?denies.?Psychiatric:?Comments?all negative.? * Medical History:? * Surgical History:?FINGERTIP REPAIR--had a skin graft * Hospitalization/Major Diagno stic Procedure:?No Hospitalization History. * Family History:?Father: dece ased, prostate cancer.?Mother: .?Non-Contributory.? No colorectal cancer. * Social History:?Tobacco Use:?Tobacco Use/Smoking?Are you a: nonsmoker.?Drugs/Alcohol:?Alcohol Screen?Points: 1, Interpretation: Negative.?Miscellaneous:?Marital status: -- being treated for lung cancer as of the 10/2024 OV. Occupation: Retired from [employer]. ???Nonsmoker; no sig alcohol. * Medications:?TakingAtorvasta tin Calcium 10 MG Tablet 1 tablet Orally Once a day Fish Oil 1000 MG Capsule 1 capsule Orally Once a day Taking Atorvastatin Calcium 10 MG Tablet 1 tablet Orally Once a day Taking Fish Oil 1000 MG Capsule 1 capsule Orally Once a day DiscontinuedMoviPrep 100 GM Solution Reconstituted as directed Orally as directed Medication List reviewed and reconciled with the patientDiscontinued MoviPrep 100 GM Solution Reconstituted as directed Orally as directed Medication List reviewed and reconciled with the patient * Allergies:?Penicillinyes[All ergies Verified] Objective: * Vitals:?Wt:182lbs, Ht: 66.75 in, BMI:28.72Index, BP:111/11mm Hg, Wt-k.55. * Examination: ???General Examination: ?GENERAL APPEARANCE:?pleasant, well nourished, well developed, in no acute distress.?EYES:?sclera non-icteric.?ORAL CAVITY:?mucosa moist.?NECK/THYROID:?no cervical lymphadenopathy, neck supple.?SKIN:?nonjaundiced, no spider angiomata.?HEART:?S1, S2 normal.?LUNGS:?clear to auscultation bilaterally.?ABDOMEN:?normal bowel sounds, no guarding or rigidity, no guarding or rigidity, no masses palpable, soft, nontender, nondistended.?EXTREMITIES:?no edema.?NEUROLOGIC:?alert and oriented.? Assessment: * Assessment: 1.?nursing home (current) use o f anticoagulants - Z79.01 (Primary)???2.?Preprocedural examination - Z01.818???3.?Colon cancer screening - Z12.11??? e Plan: * Treatment: * Procedure Codes:?23722 DIAGN OSTIC [id number] COLORECTAL CA SCREEN DOC [id number] TOBACCO [id number] BP SCR NOT PRFRM REC REASON [id number] RCMND FLW-UP 10 YRS DOCD * Preventive Medicine:? ??Counseling:?Care goal follow-up plan:?Above Normal BMI Follow-up?Giving encouragement to exercise,?BMI management provided?Yes.? ??Screenings:?Fall Risk Screening?Fall Risk Assessment:?No falls in the past year,?Screening:?No falls in the past year,?Assessment:?Not performed, no reason specified,?Plan of Care:?Not documented, no reason specified.? * Follow Up:?prn * * Sign off status: Completed true * Provider:?Michael Krishnamurthy MD Date:? 025 Generated for Nirmal lyon/Brayden/eTransmitting on:?01/16/2025 09:45 AM EDT History and Physical Notes * Examination Category Sub-Category Detail Notes Category Not es General Examination GENERAL APPEARANCE: pleasant , well nourished, well developed, in no acute distress HEAD: EYES: sclera non-icteric EARS: NOSE: THROAT: NECK/THYROID: no cervical lymphade nopathy, neck supple HEART: S1, S2 normal CHEST: LUNGS: clear to auscultatio n bilaterally ABDOMEN: normal bowel sounds, no guarding or rigidity, no guarding or rigidity, no masses palpable, soft, nontender, nondistended NEUROLOGIC: alert and oriented SKIN: nonjaundiced, no spi jeff angiomata EXTREMITIES: no edema PERIPHERAL PULSES: BACK: BREASTS: MUSCULOSKELETAL: MALE GENITOURINARY: LYMPH NODES: RECTAL EXAM: FEMALE GENITOURINARY: ORAL CAVITY: mucosa moist
== END 2025-01-16 09:14 | disposition home or self-care (01) ==
LOC: HO.US 09:13
PROVIDERS: PCP Internal Medicine; Visit Provider Internal Medicine
DX: N28.1 Cyst of kidney, acquired (principal); N18.32 Chronic kidney disease, stage 3b
CPT/HCPCS: 76775

== ENCOUNTER → 2025-01-16 09:16 | Outpatient (BNV) | payer MEDICARE, OTHER, SELFPAY | PROVIDERS: PCP Internal Medicine; Visit Provider Radiology Diagnostic Radiology | DX: N28.1 Cyst of kidney, acquired (principal) | CPT/HCPCS: 76775 ==

== ENCOUNTER 2025-02-20 08:26 | Day surgery (SDC) | payer MEDICARE, OTHER, SELFPAY ==
[2025-02-18 14:44] VITALS: BMI 28.7
--- NOTE | 2025-02-19 08:47 | HO.ANESPROP2 ---
HPI - Anesthesia Eval Consult details Narrative: 74yo M for Colonoscopy PMF Active Problems Active Problems: All Active Problems Left shoulder pain (Acute) Skin rash (Acute) Keratosis (Acute) LFT elevation (Acute) Hyperlipidemia (Acute) Gout (Acute) Renal cysts, acquired, bilateral (Acute) Benign microscopic hematuria (Acute) Elevated blood pressure reading (Acute) Impaired fasting glucose (Acute) Primary osteoarthritis of both knees (Acute) Mixed hyperlipidemia (Acute) CKD (chronic kidney disease) stage 3, GFR 30-59 ml/min (Acute) BPH (benign prostatic hyperplasia) (Acute) Overweight (BMI 25.0-29.9) (Acute) Past Medical History Medical History Renal cysts, acquired, bilateral Benign microscopic hematuria Elevated blood pressure reading Impaired fasting glucose Primary osteoarthritis of both knees Mixed hyperlipidemia Normal colonoscopy CKD (chronic kidney disease) stage 3, GFR 30-59 ml/min BPH (benign prostatic hyperplasia) Overweight (BMI 25.0-29.9) Family History Family History Father Parkinson's disease Mother Alzheimer's disease Surgical History Surgical History Hx of hand surgery Hx of colonoscopy History of prostate surgery (~08/2018) Social History Social History Housing: House Alcohol intake: current Alcohol intake frequency: holidays/special occasions only Alcohol type: beer Patient Tobacco Use Status: Former Tobacco user e-Cigarette/Vaping Use: Never Used Second Hand Smoke Exposure: Yes Advance Directives: No Advance Directives Information Provided: Yes service: No Current occupational status: retired Cognitive needs: No Hearing needs: Yes Vision needs: Yes Meds Allergies Allergy/AdvReac Type Severity Reaction Status Date / Time bee pollen (bee stings) Allergy Severe Anaphylaxis Verified 02/18/25 14:44 Penicillins Allergy Intermediate Rash Verified 02/18/25 14:44 Home Medications ?Medication ?Instructions ?Recorded ?Confirmed ?Last Taken ?Type omega-3 fatty acids 1,000 mg 1,000 mg PO DAILY 08/04/20 01/08/25 Unknown History capsule (Fish Oil Concentrate) Exam Height,Weight and Vital Signs: Height 5 ft 6.75 in Weight 82.554 kg Pertinent Lab Results Pertinent Lab Results: Laboratory Tests 01/07/25 07:19 WBC 7.0 Hgb 16.7 Hct 50.0 Plt Count 172 Sodium 140 Potassium 4.3 Chloride 106 Carbon Dioxide 26 BUN 28 H Creatinine 1.55 H Assessment and Plan Assessment Anesthesia Assessment: Chart Reviewed
--- NOTE | 2025-02-20 09:25 | HO.ANESPROP2 ---
[facility] Active Problems Active Problems: All Active Problems Left shoulder pain (Acute) Skin rash (Acute) Keratosis (Acute) LFT elevation (Acute) Hyperlipidemia (Acute) Gout (Acute) Renal cysts, acquired, bilateral (Acute) Benign microscopic hematuria (Acute) Elevated blood pressure reading (Acute) Impaired fasting glucose (Acute) Primary osteoarthritis of both knees (Acute) Mixed hyperlipidemia (Acute) CKD (chronic kidney disease) stage 3, GFR 30-59 ml/min (Acute) BPH (benign prostatic hyperplasia) (Acute) Overweight (BMI 25.0-29.9) (Acute) Past Medical History Medical History Renal cysts, acquired, bilateral Benign microscopic hematuria Elevated blood pressure reading Impaired fasting glucose Primary osteoarthritis of both knees Mixed hyperlipidemia Normal colonoscopy CKD (chronic kidney disease) stage 3, GFR 30-59 ml/min BPH (benign prostatic hyperplasia) Overweight (BMI 25.0-29.9) Functional capacity: independent ambulation Family History Family History Father Parkinson's disease Mother Alzheimer's disease Family history of problems with anesthesia: No Surgical History Surgical History Hx of hand surgery Hx of colonoscopy History of prostate surgery (~08/2018) History of Problems with Anesthesia: No Social History Social History Housing: House Alcohol intake: current Alcohol intake frequency: holidays/special occasions only Alcohol type: beer Patient Tobacco Use Status: Former Tobacco user e-Cigarette/Vaping Use: Never Used Second Hand Smoke Exposure: Yes Advance Directives: No Advance Directives Information Provided: Yes service: No Current occupational status: retired Cognitive needs: No Hearing needs: Yes Vision needs: Yes Meds Allergies Allergy/AdvReac Type Severity Reaction Status Date / Time bee pollen [bee stings] Allergy Severe Anaphylaxis Verified 02/18/25 14:44 Penicillins Allergy Intermediate Rash Verified 02/18/25 14:44 Home Medications ?Medication ?Instructions ?Recorded ?Confirmed ?Last Taken ?Type omega-3 fatty acids 1,000 mg 1,000 mg PO DAILY 08/04/20 01/08/25 Unknown History capsule (Fish Oil Concentrate) Exam Height,Weight and Vital Signs: Height 5 ft 6.75 in Weight 82.554 kg Airway Mallampati Class: II TM Dist: >3cm Neck ROM: Full Heart: RRR Lungs: CTA Assessment and Plan Assessment Anesthesia Assessment: Anesthesia Plan Discussed Final Anesthetic Review Family History of Problems with Anesthesia: No History of Problems with Anesthesia: No NPO: Yes ASA Class: II Final Preanesthetic Review: Meds/Allgs Chart Reviewed, Consent Obtained/Reviewed and Anes Risks/Benef Reviewed Patient Risk: Low Procedure Risk: Low Anesthetic Plan Anesthetic Plan: MAC: Disposition: Standard PACU
[2025-02-20 09:51] VITALS: BP 174/98; PULSE 78; RESP 16; TEMP 36.6; O2SAT 98
[2025-02-20] MEDS: Lactated Ringers 1,000 ML 100 ML IVCONT (10:01)
[2025-02-20 11:04] VITALS: BP 107/60; PULSE 71; RESP 16; TEMP 36.1; O2SAT 92
--- NOTE | 2025-02-20 11:06 | PM.OP ---
Brief Operative Note Date of Service: 02/20/25 Pre-op diagnosis: Screening Post-op diagnosis: other (Polyps) Procedure: Colonoscopy to the cecum and TI with bx/removal of polyp, and hot snare polypectomy at 20cm Surgeon: Michael Krishnamurthy MD Anesthesia: MAC Was an Termite Control Representative used for this Procedure?: No Estimated blood loss (mL): 2.0 Pathology: other (A. Ascending colon polyp B. Polyp at 20cm) Condition: stable Disposition: PACU
[2025-02-20 11:19] VITALS: BP 118/79; PULSE 73; RESP 16; O2SAT 98
--- NOTE | 2025-02-20 11:26 | OP_ITS ---
DATE OF SERVICE: 02/20/2025 SURGEON: Michael Krishnamurthy MD INDICATIONS: The patient presents for evaluation of colorectal cancer screening. Full consent was obtained from him for this, including risks of bleeding and perforation. PREOPERATIVE DIAGNOSIS: Colorectal cancer screening. POSTOPERATIVE DIAGNOSIS: PROCEDURE PERFORMED: Colonoscopy to the cecum and terminal ileum with biopsy and removal of polyp, and hot snare polypectomy x1. ESTIMATED BLOOD LOSS: COMPLICATIONS: ANESTHESIA: Medication used, monitored anesthesia care. ASSISTANTS: SPECIMENS: POSTOPERATIVE DIAGNOSES: Colorectal cancer screening, colon polyps, diverticulosis, internal hemorrhoids. DESCRIPTION OF PROCEDURE: The patient was placed in the left lateral decubitus position. The digital rectal exam revealed no abnormalities. The Olympus video pediatric colonoscope was entered into the rectum and advanced easily to the cecum. Once in the cecum, I did identify normal-appearing cecal pouch with appendiceal orifice and a normal-appearing ileocecal valve. The terminal ileum was cannulated and appeared normal. The scope withdrawn back in the colon. The entire cecum and ileocecal valve appeared normal. The scope was slowly withdrawn assessing all mucosal surfaces carefully. Preparation was excellent. In the proximal ascending colon, there was an approximately 3 or 4 mm polyp, which was biopsied and completely removed with cold biopsy forceps. At 20 cm, there was an approximately 12 mm polyp on a short stalk, which was removed by hot snare polypectomy. The polyp was recovered by withdrawing it with the scope out of the patient. The scope was readvanced back to the polypectomy site, which appeared clean, without any sign of residual polyp nor bleeding. I did not visualize any other polyps, colitis, nor angiodysplasia. There was a mild amount of sigmoid diverticulosis. In the rectum, scope was retroflexed visualizing internal hemorrhoids, but no other pathology. The rectal mucosa appeared normal. The scope was straightened and withdrawn from the patient. He tolerated the procedure well and was returned to recovery area in stable condition. IMPRESSION: 1. Colon polyps. 2. Diverticulosis. 3. Internal hemorrhoids. PLAN: The results of the pathology will be checked. Given his age and these relatively minimal findings, I do not think he would need any further screening colonoscopies. He will otherwise see me on a p.r.n. basis. He was advised not to use any aspirin and NSAIDs for 1 week. MD SELINA Gardner/ANGELIKA / [id number] MTDD
[2025-02-20 11:30] VITALS: BP 135/86; PULSE 73; RESP 18; TEMP 36.7; O2SAT 98
--- NOTE | 2025-02-20 11:40 | HO.POSTANES ---
Post Anesthesia Evaluation Post Anesthesia Evaluation Date of Service: 02/20/25 Vital Signs: Vital Signs Temp Pulse Resp BP Pulse Ox O2 Del Method 02/20/25 11:30 98.1 F 73 18 135/86 98 Room Air 02/20/25 11:19 73 16 118/79 98 Room Air 02/20/25 11:04 97 F 71 16 107/60 92 Room Air 02/20/25 09:51 97.8 F 78 16 174/98 H 98 Room Air Anesthesia: Monitored Mental Status: Awake Pain Control: Satisfactory Nausea/Vomiting: None Hydration: Adequate Anesthesia-Related Issues: No Anes. Related Issues
== END 2025-02-20 12:00 | disposition home or self-care (01) ==
PROVIDERS: PCP Internal Medicine; Visit Provider Internal Medicine
PROC: 0DJD8ZZ Inspection of Lower Intestinal Tract, Via Natural or Artificial Opening Endoscopic (ICD-10-PCS; CPT 45378; principal; 2025-02-20 09:30)
DX: Z12.11 Encounter for screening for malignant neoplasm of colon (principal); D12.2 Benign neoplasm of ascending colon; D12.5 Benign neoplasm of sigmoid colon; K57.30 Diverticulosis of large intestine without perforation or abscess without bleeding; K64.8 Other hemorrhoids; E78.00 Pure hypercholesterolemia, unspecified; N18.30 Chronic kidney disease, stage 3 unspecified; R73.01 Impaired fasting glucose; R03.0 Elevated blood-pressure reading, without diagnosis of hypertension; N40.0 Benign prostatic hyperplasia without lower urinary tract symptoms; Z79.01 Long term (current) use of anticoagulants; Z79.899 Other long term (current) drug therapy; Z88.0 Allergy status to penicillin; Z98.890 Other specified postprocedural states; Z87.891 Personal history of nicotine dependence
CPT/HCPCS: 45385; 45380; 88305; J2003; J2704

== ENCOUNTER 2025-06-24 08:36 | Outpatient (REF) | payer MEDICARE, OTHER, SELFPAY ==
--- OUTSIDE RECORDS SUMMARY | 2025-02-20 05:30 | XMS_ITS ---
Author Organization [facility] Address [address] [place] [address] Care Team Providers Care Organisational Psychologist Name Role Phone Hernandez Martinez MD Primary Care Provider UnaMichael Muller Unavailable [phone] REASON FOR VISIT screening Encounters Encounter Location Date Provider Diagnosis [facility] Out[facility] [address] [place], [place] [phone] 02/20/2025 Michael Krishnamurthy Colon cancer scree carlos [...] Notes * IMELDA ELLISDOB:1950 (75 yo M)Acc No.[id number]:02/20/2025 COLON WITH MAC Patient: IMELDA GIRARD Provider: Gab Krishnamurthy MD :1950 A ge:74 Y S ex:Male Date:02/20/2025 Address:[address] [id number] Pcp:Hernandez Martinez MD Subjective: * Chief Complaints: * 1 . Screening. * Medical History: Objective: * Vitals: Assessment: * Assessment: 1. C olon cancer screening - Z12.11 (Primary) 2 . C olon polyps - K63.5? 3. D iverticulosis of large intestine without perforation or abscess without bleeding - K57.30 4 . O ther hemorrhoids - K64.8 Plan: * Treatment: * Procedure Codes: 4 5385 LESION REMOVAL COLONOSCOPY, 95418 COLONOSCOPY AND BIOPSY, Modifiers: 59 , 0529F INTRVL 3+YRS PTS CLNSCP DOCD, 0528F RCMND FLW-UP 10 YRS DOCD, Modifiers: 1P * * The named appointment provid er may or may not be the originator of this progress note, and it is not deemed complete until electronically signed by the appointment provider. Sign off status: Pending * Provider: Gab Krishnamurthy MD Date: 0 02/20/2025 Generated for Nirmal lyon/Brayden/Lilibethitting on: 1 08:38 AM EDT
--- OUTSIDE RECORDS SUMMARY | 2025-06-24 08:39 | XMS_ITS | Patient Health Record ---
Author Organization [facility] Address [address] [place] [address] Care Team Providers Care Enterprise Applications Manager Name Role Phone Juan WINN, Hernandez Primary Care Provider Michael Burgos [phone] Allergies Allergen (clinical drug ingredient) Drug/Non Drug Allergy documented on EMR Reaction Allergy Type Onset Date Status Penicillin Unknown Drug Allergy Active Results Component Value Reference Range Notes Pathology (Not yet reviewed by provider) Interpretation: Performing Lab:[facility], [address] [place] [id number] Notes/Report: Reason For Referral No Information Medications Medication [...] Problem Long-term current use of drug therapy (950393944) Encounter for long-term (current) use of other medications (V58.69) Active confirmed Problem Colon cancer screening (108748409) Colon cancer screening (V76.51) Active confirmed Problem Colon cancer screening (245679606) Colon cancer screening (Z12.11) Active confirmed Problem Long-term current use of anticoagulant (214577750) FPC (current) use of anticoagulants (Z79.01) Active confirmed Problem Preprocedural examination (761754832537986) Preprocedural examination (Z01.818) Active confirmed Vital Signs Blood pressure diastolic 11 mm Hg 11/08/2024 Height 66.75 in 11/08/2024 Blood pressure systolic 111 mm Hg 11/08/2024 Weight 182 lbs 11/08/2024 BMI 28.72 kg/m2 11/08/2024 Procedures Procedure Date Ordered Date Performed Result Body Sit e COLONOSCOPY 11/08/2024 N/A Encounters Encounter Location Date Provider [place] [facility] [place] [address] [place], [place] [id number] 02/20/2025 Michael Krishnamurthy Colon cancer screeni ng Z12.11 ; Colon polyps K63.5 ; Diverticulosis of large intestine without perforation or abscess without bleeding K57.30 and Other hemorrhoids K64.8 [facility] [address] [place] [address] 11/08/2024 Michael Krishnamurthy Preprocedural examination Z01.818 ; FPC (current) use of anticoagulants Z79.01 and Colon cancer screening Z12.11 Assessments Encounter Date Diagnosis (ICD Code) Assessment Notes Treatment Notes Treatment Clinical Notes Section Notes 02/20/2025 Colon cancer screening (ICD-10 - Z12.11) 02/20/2025 Colon polyps (ICD-10 - K63.5) 11/08/2024 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 Given his age, good clinical appearance, and his last colonoscopy being over 10 years ago, I did recommend a follow-up colonoscopy for further screening purposes. We did review the rationale for this in regard to colon cancer prevention. Full consent has been obtained for this, including risks of bleeding and perforation. The procedure will be done with monitored anesthesia care. Imelda was comfortable with this plan. Thank you again for allowing me to participate in Imelda's care. I shall continue to keep you advised of his progress. 11/08/2024 Preprocedural examination (ICD-10 - Z01.818) Overall, Imelda appears quite well. Given his age, good clinical appearance, and his last colonoscopy being over 10 years ago, I did recommend a follow-up colonoscopy for further screening purposes. We did review the rationale for this in regard to colon cancer prevention. Full consent has been obtained for this, including risks of bleeding and perforation. The procedure will be done with monitored anesthesia care. Imelda was comfortable with this plan. Thank you again for allowing me to participate in Iemlda's care. I shall continue to keep you advised of his progress. 02/20/2025 Diverticulosis of large intestine without perforation or abscess without bleeding (ICD-10 - K57.30) 11/08/2024 Colon cancer screening (ICD-10 - Z12.11) Overall, Imelda appears quite well. Given his age, good clinical appearance, and his last colonoscopy being over 10 years ago, I did recommend a follow-up colonoscopy for further screening purposes. We did review the rationale for this in regard to colon cancer prevention. Full consent has been obtained for this, including risks of bleeding and perforation. The procedure will be done with monitored anesthesia care. Imelda was comfortable with this plan. Thank you again for allowing me to participate in Imelda's care. I shall continue to keep you advised of his progress. 02/20/2025 Other hemorrhoids (ICD-10 - K64.8) Plan Of Treatment Pending Test Test Name Order Date COLONOSCOPY 11/08/2024 Pathology 02/20/2025 Future Test Test Name Order Date COLONOSCOPY 01/09/2014 Insurance Providers Payer Name Payer Address Payer Phone Subscriber Number Group Number Insured Name Patient Relationship to Insured Coverage Start Date Coverage End Date MEDICARE OF [place] [address] [place] [address] [phone] [id number] IMELDA ELLIS Self - patient is the insured [address] [employer] [address] [address] [place] [phone] [id number] IMELDA ELLIS Self - patient is the insured Medical (General) History Medical History History ICD Code Denies [place],DM,CVA,Lung disease,renal dise ase Elevated Cholesterol Negative [place] [address] Gisella tavera Negative screening colonoscopy in 2013 Surgical History Surgery Date(Month/Year) FINGERTIP REPAIR--had a skin graft
[2025-06-24 08:49] LABS: MANUAL DIFF FLAG NO
[2025-06-24 09:17] LABS: Hematocrit 51.2 % (42.0-52.0); Hemoglobin 16.9 g/dl (14.0-18.0); Imm Gran Abs Auto 0.03 X10*3/uL (0.00-0.03); Imm Gran Pct Auto 0.4 % (0.0-0.4); Lymphocytes Absolute Auto 2.2 X10*3/uL (1.2-4.9); Mean Corpuscular HGB Conc 33.0 g/dl (31.0-36.0); Mean Corpuscular Hemoglobin 29.6 pg (27.0-33.0); Mean Corpuscular Volume 89.8 fL (80.0-98.0); NRBC Abs Auto 0.000 X10*3/uL (0.0-0.012); NRBC Pct Auto 0.0 /100WBC (0.0-0.2); Platelet Count 166 X10*3/uL (160-400); Red Blood Count 5.70 X10*6/uL (4.60-5.80); White Blood Count 7.4 X10*3/uL (4.8-10.8)
[2025-06-24 09:20] LABS: Appearance Urine Clear; Glucose Urine UA Negative (Negative); PH 5.5 (5.0-9.0); Specific Gravity - Urine 1.020 (1.005-1.025); UMIC TRIGGER UACC YES
[2025-06-24 09:54] LABS: Alanine Aminotransferase 51 U/L (0-40); Albumin Level 4.5 g/dL (3.5-5.0); Alkaline Phosphatase 97 U/L (39-117); Anion Gap 13 (12-20); Aspartate Amino Transferase 31 U/L (5-37); Blood Urea Nitrogen 25 mg/dL (9-16); Calcium 9.1 mg/dL (8.4-10.2); Carbon Dioxide 29 mmol/L (22-29); Chloride 106 mmol/L (96-108); Cholesterol 168 mg/dL (<200); Estimated Glomerular Filt Rate 55; HDL Cholesterol 34 mg/dL (>40); Potassium 4.3 mmol/L (3.3-5.1); Sodium 144 mmol/L (135-145); Total Protein 7.9 g/dL (6.5-8.0); Triglycerides 233 mg/dL (<150)
== END 2025-06-24 08:37 | disposition home or self-care (01) ==
LOC: HO.LAB 08:36
PROVIDERS: PCP Internal Medicine; Visit Provider Internal Medicine
DX: R30.0 Dysuria (principal); D64.9 Anemia, unspecified; E78.00 Pure hypercholesterolemia, unspecified; E55.9 Vitamin D deficiency, unspecified
CPT/HCPCS: 36415; 80053; 80061; 81001; 82306; 84443; 85025

== ENCOUNTER 2025-06-26 08:44 | Outpatient (AMB) | payer MEDICARE, OTHER, SELFPAY ==
--- OUTSIDE RECORDS SUMMARY | 2025-02-20 05:30 | XMS_ITS ---
Author Organization [facility] Address [address] [place] [address] Care Team Providers Care American Sign Language Interpreter Name Role Phone Hernandez Martinez MD Primary Care Provider UnaMichael Muller Unavailable [phone] REASON FOR VISIT screening Encounters Encounter Location Date Provider Diagnosis [facility] Outpatient [address] [place], [place] [phone] 02/20/2025 Michael Krishnamurthy Colon cancer scree carlos [...] Notes * IMELDA ELLISDOB:1950 (75 yo M)Acc No.[id number]:02/20/2025 COLON WITH MAC Patient: IMELDA GIRARD Provider: Gab Krishnamurthy MD :1950 A ge:74 Y S ex:Male Date:02/20/2025 Address:[address] [id number] Pcp:Hernandez Martinez MD Subjective: * Chief Complaints: [...] Procedure Codes: 4 5385 LESION REMOVAL COLONOSCOPY, 87968 COLONOSCOPY AND BIOPSY, Modifiers: 59 , 0529F [...] 02/20/2025 Generated for Nirmal lyon/Brayden/Lilibethitting on: 1 09:18 AM EDT
--- NOTE | 2025-06-26 08:48 | MHC.PC.OV ---
Vital Signs 06/26/25 08:50 Height 5 ft 6.75 in Weight 182 lb 6 oz BMI 28.8 BP 130/82 Blood Pressure Location Lt brachial Position Sitting Pulse 92 Pulse Source Pulse Oximeter Pulse Oximetry (%) 97 Oxygen Delivery Method Room Air Intake Visit Reasons: hyperlipidemia, gout, renal cysts, CKD Conveyor Console Operator Required: No Accompanied by: Self / Same As Patient Allergies bee pollen (bee stings) Allergy (Severe, Verified 06/26/25 09:17) Anaphylaxis Penicillins Allergy (Intermediate, Verified 06/26/25 09:17) Rash Medication List - Last Reconciled 06/26/25 by Hernandez Martinez MD atorvastatin 10 mg PO DAILY colchicine (Colcrys) 0.6 mg PO DAILY 30 days epinephrine (EpiPen) 0.3 mg (0.3 mL) IM Q10M PRN mometasone 0.1% 1 appl topical DAILY PRN omega-3 fatty acids (Fish Oil Concentrate) 1,000 mg PO DAILY Tobacco use date assessed: 06/26/25 Fall risk assessment: No Falls in past year Last assessed Fall Risk: 06/26/25 Dental Screening Dental Screen Date: 06/26/25 Did you have a dental visit in the last 12 months?: Yes Did you have a dental problem in the last 6 months where you did not have access to dental care?: No Was dental information given to patient?: Patient has dentist HPI hyperlipidemia, gout, renal cysts, CKD HPI Details Patient comes in today for his follow up visit for his hyperlipidemia, gout and OA States that he feels okay except for increasing pain in his left knee for the past few weeks Would like to see if he can see orthopedics and get a cortisone injection Recalls that he had a cortisone injection into his knee several years ago that provided him with relief from pain for many years He denies any headaches or dizziness Denies any chest pains, no increased SOB No nausea/vomiting, no abdominal pain No change in bowel habits noted States that he has not had any acute gout flare ups lately He had his follow up labs done a couple of days ago - to discuss his results Would also like to know how his renal US done a few months ago came out [facility] Medical History Renal cysts, acquired, bilateral Benign microscopic hematuria Elevated blood pressure reading Impaired fasting glucose Primary osteoarthritis of both knees Mixed hyperlipidemia Normal colonoscopy CKD (chronic kidney disease) stage 3, GFR 30-59 ml/min BPH (benign prostatic hyperplasia) Overweight (BMI 25.0-29.9) Surgical History Hx of hand surgery Hx of colonoscopy History of prostate surgery (~08/2018) Family History Father Parkinson's disease Mother Alzheimer's disease Social History Housing: House Alcohol intake: current Alcohol intake frequency: holidays/special occasions only Alcohol type: beer Patient Tobacco Use Status: Former Tobacco user e-Cigarette/Vaping Use: Never Used Second Hand Smoke Exposure: Yes service: No Current occupational status: retired Cognitive needs: No Hearing needs: Yes Vision needs: Yes Questionnaire PHQ-9 Over the last 2 weeks, how often have you been bothered by any of the following problems? 1. Little interest or pleasure in doing things: not at all 2. Feeling down, depressed, or hopeless: not at all 3. Trouble falling or staying asleep, or sleeping too much: not at all 4. Feeling tired or having little energy: not at all 5. Poor appetite or overeating: not at all 6. Feeling bad about yourself - or that you are a failure or have let yourself or your family down: not at all 7. Trouble concentrating on things, such as reading the newspaper or watching television: not at all 8. Moving or speaking so slowly that other people could have noticed. Or the opposite - being so fidgety or restless that you have been moving around a lot more than usual: not at all 9. Thoughts that you would be better off or of hurting yourself in some way: not at all Total score: 0 Depression Screening Interpretation: Negative Depression Screening Done: Yes 81473 - PHQ-9 Billing: Yes Source: Developed by Drs. Michael Page, Cherie Watson, Nick Ha and colleagues, with an educational jules from [employer]. Thrive Questionnaire Date Thrive assessed: 06/26/25 I am a: Patient What is your living situation today?: I have a steady place to live Within the past 12 months, did the food you bought not last and you didn't have the money to get more?: Never true Within the past 12 months, did you worry whether your food would run out before you got money to buy more?: Never true Do you have trouble paying for medicines?: No Do you have trouble getting transportation to medical appointments?: No Do you have trouble paying your heating and electricity bill?: No Do you have trouble taking care of your child, family member or friend?: No Do you have trouble with day-to-day activities such as bathing, preparing meals, shopping, managing finances, etc.?: No Are you currently unemployed and looking for a job?: No Are you interested in more education?: No Please select the resources that you would like help with: None Currently or been in a relationship where the following occur: No concerns reported THRIVE Score: 0 AUDIT C Alcohol Use Questionnaire (AUDIT-C) 1. How often do you have a drink containing alcohol?: Monthly or less 2. How many drinks containing alcohol do you have on a typical day when you are drinking?: 1 or 2 3. How often do you have six or more drinks on one occasion?: Never Total Score: 1 Score Reviewed/Action Taken: Yes RACHEAL-7 AMB Questionnaire RACHEAL-7 Date RACHEAL - 7 assessed: 01/08/25 Source: Developed by Drs. Michael Page, Cherie Watson, Nick Ha and colleagues, with an educational jules from [employer]. Review of Systems Const Denies chills, Denies fatigue, Denies fever(s) and Denies headache(s) ENT Denies dysphagia, Denies dizziness, Denies otalgia, Denies headache(s), Denies neck pain, Denies odynophagia and Denies sore throat Card Denies chest pain, Denies palpitations and Denies dyspnea Resp Denies chest congestion, Denies cough and Denies dyspnea GI Denies abdominal pain, Denies constipation, Denies dysphagia, Denies heartburn, Denies diarrhea, Denies nausea, Denies odynophagia and Denies vomiting Denies difficulty urinating, Denies dysuria, Denies nocturia and Denies urinary frequency Musc Reports back pain (on and off), Reports arthralgias (left shoulder; increasing in the left knee for the past few weeks) and Denies neck pain Skin/Breast Denies rash Neuro Denies dizziness and Denies headache(s) Endo Denies fatigue and Denies palpitations Physical exam (Primary Care) Vital Signs: Last Vital Signs Pulse 92 06/26/25 08:50 BP 130/82 06/26/25 08:50 Pulse Ox 97 06/26/25 08:50 Oxygen Delivery Method Room Air 06/26/25 08:50 BMI result Body Mass Index 28.8 Tobacco/Smoking Status: Tobacco use Status Tobacco use date assessed 06/26/25 06/26/25 08:56 Patient Tobacco Use Status Former Tobacco user 06/26/25 08:56 e-Cigarette/Vaping Use Never Used 06/26/25 08:56 Depression Screening Interpretation: Negative Thrive Assessment: Date of Thrive Assessment Date Thrive assessed 01/08/25 06/26/25 08:56 Currently or been in a relationship where the following occur: No concerns reported Const General: no acute distress and alert HENMT Ears: TM's normal bilaterally and EAC's normal Throat: Yes posterior oropharynx normal and Yes tonsils normal (no TP congestion) Neck Neck: Yes no lymphadenopathy and Yes supple Resp Auscultation: clear to auscultation bilaterally, no rales and no wheezes Cardio Rate: regular rate Rhythm: regular rhythm Heart sounds: no murmurs GI Palpation (GI): Soft to palpation and nontender Auscultation: normal bowel sounds General: Yes no CVA tenderness Back/Spine/Pelvis Back: no CVA tenderness Thoracic/Lumbar Spine: lumbar spinal tenderness (mild) Skin Rashes: no rashes Extrem General: Yes no clubbing, cyanosis or edema Left upper extremity: shoulder/upper arm Details: tenderness (mild) Location: of the A-C joint and normal ROM Left lower extremity: knee Details: tenderness Location: of the pre-patellar area and of the infrapatellar area; no swelling Results Reviewed Results Reviewed: Laboratory Tests 06/24/25 06/24/25 08:41 08:49 WBC 7.4 Hgb 16.9 Hct 51.2 Plt Count 166 Sodium 144 Potassium 4.3 Creatinine 1.28 Estimated GFR 55 Fasting Glucose 93 Calcium 9.1 Total Bilirubin 0.7 AST 31 ALT 51 H Triglycerides 233 H Cholesterol 168 LDL Cholesterol, Calc 88 HDL Cholesterol 34 L 25-OH Vitamin D Total 47.0 TSH 2.44 Ur Specific [place] 1.020 Urine Protein Negative Urine Glucose (UA) Negative Urine Blood Small (1+) H Urine Nitrite Negative Ur Leukocyte Esterase Negative Coding Level of Care Code Est Pt Level 4 (46473) Complex EM visit Add On G2211 Diagnoses Mixed hyperlipidemia E78.2 Elevated blood pressure reading R03.0 Stage 3a chronic kidney disease N18.31 Chronic kidney disease stage 3 subtype: stage 3a (GFR 45-59) Renal cysts, acquired, bilateral N28.1 Impaired fasting glucose R73.01 Benign microscopic hematuria R31.1 Chronic gout without tophus, unspecified cause, unspecified site [id number].[id number] Gout site: unspecified site Gout etiology: unspecified cause Chronicity: chronic Presence of tophus: without tophus Primary osteoarthritis of both knees M17.0 Left shoulder pain, unspecified chronicity M25.512 Chronicity: unspecified Benign prostatic hyperplasia without lower urinary tract symptoms N40.0 Lower urinary tract symptom presence: symptoms absent Overweight (BMI 25.0-29.9) E66.3 Additional Codes PHQ-9 - 29495 - PHQ-9 Billing: Yes ([id number]) Assessment & Plan Assessment & Plan (1) Mixed hyperlipidemia: Code(s): E78.2 - Mixed hyperlipidemia Category: Medical Plan: Results of his labs done a couple of days ago reviewed and discussed with patient Reinforced low cholesterol diet Continue Atorvastatin 10 mg QD and Fish Oil capsules 1000 mg QD Will recheck his labs and fasting lipids in 6 months for follow up (2) Elevated blood pressure reading: Code(s): R03.0 - Elevated blood-pressure reading, without diagnosis of hypertension Category: Medical Plan: Improved - his blood pressure remains well-controlled lately Reinforced low sodium diet - goal is systolic BP of at least 130 to 140 mm or less Patient is reminded to continue monitoring his blood pressure regularly (3) CKD (chronic kidney disease) stage 3, GFR 30-59 ml/min: Code(s): N18.30 - Chronic kidney disease, stage 3 unspecified Category: Medical Qualifiers: Chronic kidney disease stage 3 subtype: stage 3a (GFR 45-59) Qualified Code(s): N18.31 - Chronic kidney disease, stage 3a Plan: Patient's serum creatinine and GFR / renal function have improved from previous on his recent labs He is again reminded to stay hydrated as best as he can, and that exercising regularly and keeping his blood pressure under good control and avoiding any NSAIDs can help slow down the decline of his renal function Repeat bilateral renal US done back in January 2025 revealed (+) multiple different sizes simple renal cysts, bilaterally. No hydronephrosis. Concerning medical renal disease. (4) Renal cysts, acquired, bilateral: Code(s): N28.1 - Cyst of kidney, acquired Category: Medical Plan: Renal US done in 06/2022 revealed (+) multiple bilateral renal cysts, with some of the larger cysts demonstrating thin internal septations. There were no suspicious mural nodules and no stones or obstructive uropathy noted but the cysts in both kidneys have increased in size when compared to his US done in 2018 Will continue monitoring this but more closely - repeat renal US was done last January 2025 (see above for results) (5) Impaired fasting glucose: Code(s): R73.01 - Impaired fasting glucose Category: Medical Plan: His FBS was normal at 93 mg/dl on his labs done a couple of days ago; HgbA1c was normal at 5.4% when checked last year Reinforced low calorie diet/exercise as tolerated (6) Benign microscopic hematuria: Code(s): R31.1 - Benign essential microscopic hematuria Category: Medical Plan: Asymptomatic - work ups done in the past have been negative; these appear to be more likely related to his renal cysts Will continue to monitor this regularly (7) Gout: Code(s): M10.9 - Gout, unspecified Category: Medical Qualifiers: Gout site: unspecified site Gout etiology: unspecified cause Chronicity: chronic Presence of tophus: without tophus Qualified Code(s): M1A.9XX0 - Chronic gout, unspecified, without tophus (tophi) Plan: His serum uric acid was still elevated at 8.1 when last checked a few months ago Patient states that he's had no acute flare ups of gout lately He still has his Colchicine 0.6 mg Rx but states that he has not taken it in a while now since he's had no gout flare ups lately Reinforced low purine diet (8) Primary osteoarthritis of both knees: Comment: X-rays of both knees done in December 2016 showed (+) mild tricompartmental arthritis Code(s): M17.0 - Bilateral primary osteoarthritis of knee Category: Medical Plan: Patient states that his left knee has been bothering him again lately, with increasing pain over the past few weeks Recalls that his knee pain improved significantly with cortisone injection in the past, most recently in April 2018 Will refer him back to orthopedics for further management and consideration for cortisone injections again (9) Left shoulder pain: Code(s): M25.512 - Pain in left shoulder Category: Medical Qualifiers: Chronicity: unspecified Qualified Code(s): M25.512 - Pain in left shoulder Plan: (+) Hx of shoulder dislocation in the past; he denies any other recent injury or trauma to his shoulder He has declined offer to send him for shoulder x-rays, as he states that his shoulder is more of a nagging issue and bothers him every now and then but not consistently - have advised him that he can call for the x-ray orders at any time if he wants to get them done Have given him before some instructions for shoulder/rotator cuff exercises that he can do on his own and have advised him that if he can try to do these exercises regularly, they might help relieve his shoulder pain or at least help him manage them better (10) BPH (benign prostatic hyperplasia): Code(s): N40.0 - Benign prostatic hyperplasia without lower urinary tract symptoms Category: Medical Qualifiers: Lower urinary tract symptom presence: symptoms absent Qualified Code(s): N40.0 - Benign prostatic hyperplasia without lower urinary tract symptoms Plan: S/P TURP a few years ago He is currently asymptomatic Follow up with urology as scheduled (11) Overweight (BMI 25.0-29.9): Code(s): E66.3 - Overweight Category: Medical Plan: Reinforced diet/exercise as tolerated/lose weight Plan Follow up in 6 months Orders: Orders Uric Acid 6 Months M10.9 - Gout, unspecified TSH reflex Free T4 6 Months E78.00 - Pure hypercholesterolemia, unspecified UA CC w/rflx Micro + Cult 6 Months R30.0 - Dysuria Vitamin D 25-OH Total 6 Months E55.9 - Vitamin D deficiency, unspecified Prostate Specific Antigen 6 Months N40.0 - Benign prostatic hyperplasia without lower urinary tract symptoms Microalbumin, Random (w Creat) 6 Months N18.31 - Chronic kidney disease, stage 3a Complete Blood Count Auto Diff 6 Months D64.9 - Anemia, unspecified Comprehensive [place]. Panel Fast 6 Months E78.00 - Pure hypercholesterolemia, unspecified Lipid Panel 6 Months E78.00 - Pure hypercholesterolemia, unspecified Hemoglobin A1c 6 Months R73.01 - Impaired fasting glucose Referrals Orthopedics Referral M17.0 - Bilateral primary osteoarthritis of knee
[2025-06-26 08:50] VITALS: BP 130/82; PULSE 92; O2SAT 97; BMI 28.8
--- OUTSIDE RECORDS SUMMARY | 2025-06-26 09:19 | XMS_ITS | Patient Health Record ---
Author Organization [facility] Address [address] [place] [address] Care Team Providers Care Valet Service Attendant Name Role Phone Juan WINN, Hernandez Primary Care Provider Michael Burgos [phone] Allergies Allergen (clinical drug ingredient) Drug/Non Drug Allergy documented on EMR Reaction Allergy Type Onset Date Status Penicillin Unknown Drug Allergy Active Results Component Value Reference Range Notes Pathology (Not yet reviewed by provider) Interpretation: Performing Lab:[facility], [address] [place] [id number] Notes/Report: Reason For Referral No Information Medications [...] Problem Long-term current use of drug therapy (904254232) Encounter for long-term (current) use of other medications (V58.69) Active confirmed Problem Colon cancer screening (764400867) Colon cancer screening (V76.51) Active confirmed Problem Colon cancer screening (973937539) Colon cancer screening (Z12.11) Active confirmed Problem Long-term current use of anticoagulant (749673794) FDC (current) use of anticoagulants (Z79.01) Active confirmed Problem Preprocedural examination (545248008745412) Preprocedural examination (Z01.818) Active confirmed Vital Signs Blood pressure diastolic 11 mm Hg 11/08/2024 Height 66.75 in 11/08/2024 Blood pressure systolic 111 mm Hg 11/08/2024 Weight 182 lbs 11/08/2024 BMI 28.72 kg/m2 11/08/2024 Procedures Procedure Date Ordered Date Performed Result Body Sit e COLONOSCOPY 11/08/2024 N/A Encounters Encounter Location Date Provider Diagnosis [facility] [place] Out[place] [address], [place] [phone] 02/20/2025 Michael Krishnamurthy Colon cancer screeni ng Z12.11 ; Colon polyps K63.5 ; Diverticulosis of large intestine without perforation or abscess without bleeding K57.30 and Other hemorrhoids K64.8 [facility] [address] [place] [address] 11/08/2024 Michael Krishnamurthy Preprocedural examination Z01.818 ; FDC (current) use of anticoagulants Z79.01 and Colon cancer screening Z12.11 Assessments Encounter Date Diagnosis (ICD Code) Assessment Notes Treatment Notes Treatment Clinical Notes Section Notes 02/20/2025 Colon cancer screening (ICD-10 - Z12.11) 02/20/2025 Colon polyps (ICD-10 - K63.5) 11/08/2024 termite helper (current) use of anticoagulants (ICD-10 - [...] Date MEDICARE OF [place] [address] [place] [address] [phone] [id number] IMELDA ELLIS Self - patient is the insured [address] [employer] [employer] [address] [address] [place] [phone] [id number] IMELDA ELLIS Self - patient is the insured Medical (General) History Medical History History ICD Code Denies [place],DM,CVA,Lung disease,renal dise ase Elevated Cholesterol Negative colon[place] [address] Gisella tavera Negative screening colonoscopy in 2013 Surgical History Surgery Date(Month/Year) FINGERTIP REPAIR--had a skin graft
== END 2025-06-26 09:43 | disposition home or self-care (01) ==
LOC: HO.HMCH 08:44
PROVIDERS: PCP Internal Medicine; Visit Provider Internal Medicine
DX: E78.2 Mixed hyperlipidemia (principal); R03.0 Elevated blood-pressure reading, without diagnosis of hypertension; N18.31 Chronic kidney disease, stage 3a; N28.1 Cyst of kidney, acquired; R73.01 Impaired fasting glucose; R31.1 Benign essential microscopic hematuria; M1A.9XX0 Chronic gout, unspecified, without tophus (tophi); M17.0 Bilateral primary osteoarthritis of knee; M25.512 Pain in left shoulder; N40.0 Benign prostatic hyperplasia without lower urinary tract symptoms; E66.3 Overweight

== ENCOUNTER → 2025-06-26 08:44 | Outpatient (BNVA) | payer MEDICARE, OTHER, SELFPAY | PROVIDERS: PCP Internal Medicine; Visit Provider Internal Medicine | DX: E78.2 Mixed hyperlipidemia (principal); R03.0 Elevated blood-pressure reading, without diagnosis of hypertension; N18.31 Chronic kidney disease, stage 3a; N28.1 Cyst of kidney, acquired; R73.01 Impaired fasting glucose; R31.1 Benign essential microscopic hematuria; M1A.9XX0 Chronic gout, unspecified, without tophus (tophi); M17.0 Bilateral primary osteoarthritis of knee; M25.512 Pain in left shoulder; N40.0 Benign prostatic hyperplasia without lower urinary tract symptoms; E66.3 Overweight; Z68.28 Body mass index [BMI] 28.0-28.9, adult | CPT/HCPCS: 96127; 99212 ==

== ENCOUNTER 2025-07-31 07:48 | Outpatient (AMB) | payer OTHER, MEDICARE, SELFPAY ==
--- OUTSIDE RECORDS SUMMARY | 2025-02-20 04:30 | XMS_ITS ---
Author Organization [facility] Address [address] [place] [address] Care Team Providers Care Pants Busheler Name Role Phone Hernandez Martinez MD Primary Care Provider UnaMichael Muller Unavailable [phone] REASON FOR VISIT screening Encounters Encounter Location Date Provider Diagnosis [facility] Out[facility] [address] [place], [place] [phone] 02/20/2025 Michael Krishnamurthy Colon cancer scree carlos Z12.11 ; Colon polyps K63.5 ; Diverticulosis of large intestine without perforation or abscess without bleeding K57.30 and Other hemorrhoids K64.8 Assessments Encounter Date Diagnosis (ICD Code) Assessment Notes Treatment Notes Treatment Clinical Notes Section Notes 02/20/2025 Colon cancer screening (ICD-10 - Z12.11) 02/20/2025 Colon polyps (ICD-10 - K63.5) 02/20/2025 Diverticulosis of large intestine without perforation or abscess without bleeding (ICD-10 - K57.30) 02/20/2025 Other hemorrhoids (ICD-10 - K64.8) Plan Of Treatment No Information Progress Notes * IMELDA ELLISDOB:1950 (75 yo M)Acc No.[id number]:02/20/2025 COLON WITH MAC Patient: IMELDA GIRARD Provider: Gab Krishnamurthy MD :1950 A ge:74 Y S ex:Male Date:02/20/2025 Address:[address] [id number] Pcp:Hernandez Martinez MD Subjective: * Chief Complaints: * S creening Assessment: * Assessment: 1. C olon cancer screening - Z12.11 (Primary) 2 . C olon polyps - K63.5? 3. D iverticulosis of large intestine without perforation or abscess without bleeding - K57.30 4 . O ther hemorrhoids - K64.8 Plan: * Procedure Codes: 4 5385 LESION REMOVAL [id number] COLONOSCOPY AND BIOPSY, Modifiers: 59 0529F INTRVL 3+YRS PTS CLNSCP [id number] RCMND FLW-UP 10 YRS DOCD, Modifiers: 1P Billing Information: * Procedure Codes: 89007 LESION REMOVAL COLONOSCOPY. 78506 COLONOSCOPY AND BIOPSY. Modifiers: 59 0529F INTRVL 3+YRS PTS CLNSCP DOCD. 0528F RCMND FLW-UP 10 YRS DOCD. Modifiers: 1P * The named appointment provid er may or may not be the originator of this progress note, and it is not deemed complete until electronically signed by the appointment provider. Sign off status: Pending * Provider: Gab Krishnamurthy MD Date: 0 02/20/2025 Generated for Nirmal lyon/Brayden/Lilibethitting on: 09/30/2024 03:21 PM EST
--- NOTE | 2025-07-31 07:54 | A.OFFVIS_ITS ---
Vital Signs 07/31/25 08:08 Height 5 ft 7 in Weight 177 lb BMI 27.7 Intake Visit Reasons: left knee pain Intake Note: Mustapha is a 75 year old male who presents today for his left knee pain. Reports pain and stiffness mainly at night. Has been treated at [facility] in past. He did have a cortisone injection several years ago which gave him good relief. He denies any locking or giving way. He does not like to take medicines for his pain. He does walk for exercise. Allergies bee pollen (bee stings) Allergy (Severe, Verified 07/31/25 08:09) Anaphylaxis Penicillins Allergy (Intermediate, Verified 07/31/25 08:09) Rash Medication List - Last Reconciled 07/31/25 by Kike Ross MD atorvastatin 10 mg PO DAILY colchicine (Colcrys) 0.6 mg PO DAILY 30 days epinephrine (EpiPen) 0.3 mg (0.3 mL) IM Q10M PRN mometasone 0.1% 1 appl topical DAILY PRN omega-3 fatty acids (Fish Oil Concentrate) 1,000 mg PO DAILY PFSH Medical History Renal cysts, acquired, bilateral Benign microscopic hematuria Elevated blood pressure reading Impaired fasting glucose Primary osteoarthritis of both knees Mixed hyperlipidemia Normal colonoscopy CKD (chronic kidney disease) stage 3, GFR 30-59 ml/min BPH (benign prostatic hyperplasia) Overweight (BMI 25.0-29.9) Surgical History Hx of hand surgery Hx of colonoscopy History of prostate surgery (~08/2018) Family History Father Parkinson's disease Mother Alzheimer's disease Social History Housing: House Alcohol intake: current Alcohol intake frequency: holidays/special occasions only Alcohol type: beer Patient Tobacco Use Status: Former Tobacco user e-Cigarette/Vaping Use: Never Used Second Hand Smoke Exposure: Yes service: No Current occupational status: retired Cognitive needs: No Hearing needs: Yes Vision needs: Yes Physical Exam Vital Signs: BMI result Body Mass Index 27.7 Extrem Other: Left knee examination shows a minimal effusion, mild crepitus with range of motion, tenderness along his medial joint line, no instability Office Procedures AMB Joint Injection/Aspiration Joint Injection/Aspiration Primary Site: Left Knee Prep: site was prepped using aseptic technique Injected: 40 mg of, DepoMedrol, with 3 mL of and 1% plain Lidocaine Procedure: The patient tolerated the procedure well Coding - Large joint Procedure code (CPT) selection complete Results Reviewed Results Reviewed: X-rays of the patient's left knee taken today show moderate joint space narrowing most significant in the medial compartment, subchondral sclerosis, no acute bony abnormalities Assessment & Plan Assessment & Plan (1) Osteoarthritis of left knee: Code(s): M17.12 - Unilateral primary osteoarthritis, left knee Category: Medical Plan Mr. Britton presents with left knee pain due to osteoarthritis. The risks and benefits of a left knee cortisone injection were discussed at length with the patient. The patient wished to proceed. He tolerated the injection well. He will continue with his activity modifications. He will follow up with me on an as-needed basis should his symptoms not plateau at an unacceptable level over the next few months. Feel free to call me at any time should questions regarding his orthopedic management arise. I spent 20 minutes in reviewing the patient's records and imaging studies, seeing the patient and documenting in the medical record. Orders: Orders AMB Joint Injection/Aspiration Today M17.12 - Unilateral primary osteoarthritis, left knee Coding Level of Care Code New Pt Level 3 (40191) Complex EM visit Add On G2211 Diagnoses Osteoarthritis of left knee M17.12 CPT Codes Coding - 98060 Large joint: 91008 - Large joint ([id number])
[2025-07-31 08:08] VITALS: BMI 27.7
--- OUTSIDE RECORDS SUMMARY | 2025-07-31 15:22 | XMS_ITS | Patient Health Record ---
Author Organization [facility] Address [address] [place] [address] Care Team Providers Care Cyber Defense Forensics Analyst Name Role Phone Juan WINN, Hernandez Primary Care Provider Michael Burgos [phone] Allergies Allergen (clinical drug ingredient) Drug/Non Drug Allergy documented on EMR Reaction Allergy Type Onset Date Status Penicillin Unknown Drug Allergy Active Results Component Value Reference Range Notes Pathology (Not yet reviewed by provider) Interpretation: Performing Lab:[facility], [address] [place] [phone] Notes/Report: Reason For Referral No Information Medications Medication SIG (Take, Route, Frequency, Duration) Notes Start Date End Date Status Fish Oil 1000 MG Capsule 1 capsule Orall y Once a day Active Atorvastatin Calcium 10 MG Tablet 1 tablet Orally Once a day Active Social History Social History Additional Details Category Social Info Options Details Miscellaneous: Marital status: --w sherin being treated for lung cancer as of the 10/2024 OV Occupation: Retired from [employer] Section Notes: Nonsmoker; no sig alcohol Nonsmoker; no sig alcohol Problems Problem Type SNOMED Code ICD Code Onset Dates Problem Status W/U Status Risk Notes Problem Long-term current use of drug therapy (395480960) Encounter for long-term (current) use of other medications (V58.69) Active confirmed Problem Colon cancer screening (498416658) Colon cancer screening (V76.51) Active confirmed Problem Colon cancer screening (486387625) Colon cancer screening (Z12.11) Active confirmed Problem Long-term current use of anticoagulant (037325416) supervisor intermediates (current) use of anticoagulants (Z79.01) Active confirmed Problem Preprocedural examination (708856363830407) Preprocedural examination (Z01.818) Active confirmed Vital Signs Blood pressure diastolic 11 mm Hg 11/08/2024 Height 66.75 in 11/08/2024 Blood pressure systolic 111 mm Hg 11/08/2024 Weight 182 lbs 11/08/2024 BMI 28.72 kg/m2 11/08/2024 Procedures Procedure Date Ordered Date Performed Result Body Sit e COLONOSCOPY 11/08/2024 N/A Encounters Encounter Location Date Provider Diagnosis [facility] [address] [place] [id number] 02/20/2025 Michael Krishnamurthy Colon cancer screeni ng Z12.11 ; Colon polyps K63.5 ; Diverticulosis of large intestine without perforation or abscess without bleeding K57.30 and Other hemorrhoids K64.8 [facility] [address] [place] [address] 11/08/2024 Michael Krishnamurthy Preprocedural examination Z01.818 ; supervisor intermediates (current) use of anticoagulants Z79.01 and Colon cancer screening Z12.11 Assessments Encounter Date Diagnosis (ICD Code) Assessment Notes Treatment Notes Treatment Clinical Notes Section Notes 02/20/2025 Colon polyps (ICD-10 - K63.5) 02/20/2025 Colon cancer screening (ICD-10 - Z12.11) 11/08/2024 supervisor intermediates (current) use of anticoagulants (ICD-10 - Z79.01) [...] Date MEDICARE OF [place] [address] [place] [address] [phone] [id number] IMELDA ELLIS Self - patient is the insured [address] [place] [phone] [id number] CALEB IMELDA Self - patient is the insured Medical (General) History Medical History History ICD Code Denies [place],DM,CVA,Lung disease,renal dise ase Elevated Cholesterol [place] [address] Gisella tavera Negative screening colonoscopy in 2013 Surgical History Surgery Date(Month/Year) FINGERTIP REPAIR--had a skin graft
== END 2025-07-31 08:21 | disposition home or self-care (01) ==
PROVIDERS: PCP Internal Medicine; Visit Provider Orthopaedic Surgery
DX: M17.12 Unilateral primary osteoarthritis, left knee (principal)
CPT/HCPCS: 20610; 99203

== ENCOUNTER → 2025-07-31 07:57 | Outpatient (BNV) | payer OTHER, MEDICARE, SELFPAY | PROVIDERS: Visit Provider Radiology Diagnostic Ultrasound | DX: M17.12 Unilateral primary osteoarthritis, left knee (principal) | CPT/HCPCS: 73562 ==

== ENCOUNTER 2025-07-31 09:09 | Outpatient (REF) | payer MEDICARE, OTHER, SELFPAY ==
--- OUTSIDE RECORDS SUMMARY | 2025-02-20 04:30 | XMS_ITS ---
Author Organization [facility] Address [address] [place] [address] Care Team Providers Care Supervisor Cytogenetic Laboratory Name Role Phone Hernandez Martinez MD Primary Care Provider UnaMichael Muller Unavailable [phone] REASON FOR VISIT screening Encounters Encounter Location Date Provider Diagnosis [facility] Out[facility] [address] [place], [place] [phone] 02/20/2025 Michael Krishnamurthy Colon cancer scree carlos [...] Notes * IMELDA ELLISDOB:1950 (75 yo M)Acc No.[id number]:02/20/2025 COLON WITH MAC Patient: IMLEDA GIRARD Provider: Gab Krishnamurthy MD :1950 A ge:74 Y S ex:Male Date:02/20/2025 Address:[address] [id number] Pcp:Hernandez Martinez MD Subjective: * Chief Complaints: * S creening Assessment: * Assessment: 1. C olon cancer screening - Z12.11 (Primary) 2 . C olon polyps - K63.5? 3. D iverticulosis of large intestine without perforation or abscess without bleeding - K57.30 4 . O ther hemorrhoids - K64.8 Plan: * Procedure Codes: 4 5385 LESION REMOVAL [id number] COLONOSCOPY AND BIOPSY, Modifiers: 59 0529F INTRVL 3+YRS PTS CLNSCP [id number] RCMND FLW-UP 10 YRS DOCD, Modifiers: 1P Billing Information: * Procedure Codes: 07522 LESION REMOVAL COLONOSCOPY. 65947 COLONOSCOPY AND BIOPSY. Modifiers: 59 0529F INTRVL [...] 0 02/20/2025 Generated for Nirmal lyon/Brayden/Lilibethitting on: 10/01/2024 11:40 AM EST
--- NOTE | ~2025-07-31 | XR_ITS ---
EXAMINATION: XR KNEE, LEFT CLINICAL INFORMATION: Left knee pain COMPARISON: X-ray 01/10/2017 TECHNIQUE: Four views of the left knee. FINDINGS: Moderate medial medial compartment arthritis. Mild genu varus, with compensatory prominence of the lateral space. No acute fracture or dislocation. No significant effusion. Stable small ossification the posterior joint space, possible loose body. XR/XR knee LT 3V IMPRESSION: Moderate medial compartment arthritis. Interval progression from previous. Electronically signed by: Ata Nino MD 07/31/2025 03:52 PM EST
--- OUTSIDE RECORDS SUMMARY | 2025-08-01 11:41 | XMS_ITS ---
Author Organization Unknown ENCOUNTERS Encounter Performer Location Date Diagnosis Diagnosis Status Pre Admit [address] [id number] Outpatient [address] [id number] MARISA *Note: Encounters from your own facility or health system may be excluded. Allergies, Adverse Reactions, Alerts Allergen Type Severity Identification Date bee pollen drug allergy 4 [id number] Penicillins drug allergy 3 98965256 Medications Name Date Quantity Days Supplied GPI Number
--- OUTSIDE RECORDS SUMMARY | 2025-08-01 11:41 | XMS_ITS | Patient Health Record ---
Author Organization [facility] Address [address] [place] [address] Care Team Providers Care Cooler Conveyor Loader Name Role Phone Juan WINN, Hernandez Primary Care Provider Michael Burgos [phone] Allergies Allergen (clinical drug ingredient) Drug/Non Drug Allergy documented on EMR Reaction Allergy Type Onset Date Status Penicillin Unknown Drug Allergy Active Results Component Value Reference Range Notes Pathology (Not yet reviewed by provider) Interpretation: Performing Lab:[facility], [address] [place] [phone] Notes/Report: Reason For Referral No Information Medications [...] Problem Long-term current use of drug therapy (401961247) Encounter for long-term (current) use of other medications (V58.69) Active confirmed Problem Colon cancer screening (466586002) Colon cancer screening (V76.51) Active confirmed Problem Colon cancer screening (923286220) Colon cancer screening (Z12.11) Active confirmed Problem Long-term current use of anticoagulant (775920954) bed bug exterminator (current) use of anticoagulants (Z79.01) Active confirmed Problem Preprocedural examination (370462701609578) Preprocedural examination (Z01.818) Active confirmed Vital Signs Blood pressure diastolic 11 mm Hg 11/08/2024 Height 66.75 in 11/08/2024 Blood pressure systolic 111 mm Hg 11/08/2024 Weight 182 lbs 11/08/2024 BMI 28.72 kg/m2 11/08/2024 Procedures Procedure Date Ordered Date Performed Result Body Sit e COLONOSCOPY 11/08/2024 N/A Encounters Encounter Location Date Provider Diagnosis [facility] [address] [place] [id number] 02/20/2025 Michael Krishnamurthy Colon cancer screeni ng Z12.11 ; Colon polyps K63.5 ; Diverticulosis of large intestine without perforation or abscess without bleeding K57.30 and Other hemorrhoids K64.8 [facility] [address] [place] [address] 11/08/2024 Michael Krishnamurthy Preprocedural examination Z01.818 ; bed bug exterminator (current) use of anticoagulants Z79.01 and Colon cancer screening Z12.11 Assessments Encounter Date Diagnosis (ICD Code) Assessment Notes Treatment Notes Treatment Clinical Notes Section Notes 02/20/2025 Colon polyps (ICD-10 - K63.5) 02/20/2025 Colon cancer screening (ICD-10 - Z12.11) 11/08/2024 bed bug exterminator (current) use of anticoagulants (ICD-10 - Z79.01) [...] OF [place] [address] [place] [address] [phone] [id number] IMELDA ELLIS Self - patient is the insured [address] [place] [phone] [id number] CALEB IMELDA Self - patient is the insured Medical (General) History Medical History History ICD Code Denies [place],DM,CVA,Lung disease,renal dise ase Elevated Cholesterol [place] [address] Gisella tavera Negative screening colonoscopy in 2013 Surgical History Surgery Date(Month/Year) FINGERTIP REPAIR--had a skin graft
== END 2025-07-31 09:10 | disposition home or self-care (01) ==
LOC: HO.HOSX 09:09
PROVIDERS: Visit Provider Orthopaedic Surgery
DX: M17.12 Unilateral primary osteoarthritis, left knee (principal)
CPT/HCPCS: 20610; 73562; J1010; J2003